=== PATIENT | male | born 1970 | race Hispanic/Latino ===

== ENCOUNTER 2024-10-14 15:44 | Emergency (ER) | payer OTHER ==
--- OUTSIDE RECORDS SUMMARY | 2024-10-14 15:48 | XMS REPORT | Continuity of Care Document ---
Author Name Unknown Address [address] [place] [address] [facility] Address [address] [place] [address] Care Team Providers Care Hotel Reservation Agent Name Role Phone Rehana COOK, Zaira Davis Primary Care Physician KEYA KIM Attending Clinician ZAIRA Garvin Attending Clinician Chelo Viera MA Attending Clinician Zaira Lara MD Attending Clinician + [phone] ALAN LOPEZ Attending Clinician ALAN Curtis Attending Clinician Amanda Cruz, Ang - Db Attending Clinician Zaira Muller MD Attending Clinician + [phone] Alan Lopez MD Attending Clinician [phone] Doctor Unassigned, [place] [facility] Attending Clinician Micah Marti MD Attending Clinician [phone] Jae Choudhury Attending Clinician [phone] JAE IVERSON Attending Clinician Unavailable Provider, [facility] Attending Clinician Un available Candie Calvo Attending Clinician [phone] CANDIE SOTELO Attending Clinician Unavailable RIANNA URBINA Attending Clinician Unavaila ble Lab, Adc Fam Pob I Attending Clinician Unavailab Keya Serrano MD Attending Clinician + [phone] Only, Adc Test Attending Clinician Unavailable Scott CINTRON, Adelaide F Attending Clinician MELVI LEMUS Attending Clinician Unavailable COLIN GAMINO Attending Clinician Un available Mika COOK, Mary Attending Clinician [phone] Joaquín Caba MD Attending Clinician [phone] KEYA KIM Admitting Clinician Keya Nash MD Admitting Clinician + [phone] Payers Payer Name Policy Type Policy Number Effective Date Expirati on Date Source [employer] [place] - OUT OF STATE [id number] 2015 00:00:00 [facility] ADV [id number] 2021 00:00:00 Problems Condition Name Condition Details Condition Category Status Onset Date Resolution Date Last Treatment Date Treating Clinician Comments Source Mood disorder Mood disorder Disease Active 12-26 00:00: 00 [facility] Benign prostatic hyperplasi a with urinary frequency Benign prostatic hyperplasi a with urinary frequency Disease Active 10-10 00:00: 00 Overview: Formattin g of this note might be different from the original. Added automatic ally from request for surgery [id number] [facility] Uncontroll ed type 2 diabetes mellitus with microalbum inuria, without long-term current use of insulin Uncontroll ed type 2 diabetes mellitus with microalbum inuria, without long-term current use of insulin Disease Active 08-10 00:00: 00 [facility] Elevated liver enzymes Elevated liver enzymes Disease Active 08-10 00:00: 00 [facility] Mass Mass Disease Active 08-10 00:00: 00 [facility] Hyperlipid emia, unspecifie d hyperlipid emia type Hyperlipid emia, unspecifie d hyperlipid emia type Disease Active 08-10 00:00: 00 [facility] Leukocytos is, unspecifie d type Leukocytos is, unspecifie d type Disease Active 08-10 00:00: 00 [facility] Bilateral edema of lower extremity Bilateral edema of lower extremity Disease Active 16 00:00: 00 [facility] Essential hypertensi on Essential hypertensi on Disease Active 2014-07 2 00:00: 00 [facility] Type 2 diabetes mellitus without complicati on Type 2 diabetes mellitus without complicati on Disease Resolve d 11-02 00:00: 00 2017-08-10 00:00:00 2017-08-10 08:20:48 [facility] Allergies, Adverse Reactions, Alerts Allergy Name Allergy Type Status Severity Reaction(s) Onset Date Inactive Date Treating Clinician Comments Source NO KNOWN ALLERGIE S Drug Class Active [facility] Social History Social Habit Start Date Stop Date Quantity Comments Source Gender identity [facility] Sexual orientation [facility] History SDOH Alcohol Frequency [facility] History SDOH Alcohol Std Drinks [facility] History SDOH Alcohol Binge [facility] Alcoholic beverage intake 2024-08-11 00:00:00 2024-08-11 00:00:00 0 /d [facility] History of Social function 2024-02-11 00:00:00 2024-02-11 00:00:00 [facility] Cigarettes smoked current (pack per day) - Reported 2024-02-11 00:00:00 2024-02-11 00:00:00 [facility] Cigarette pack-years 2024-02-11 00:00:00 2024-02-11 00:00:00 [facility] Tobacco use and exposure 2024-02-11 00:00:00 2024-02-11 00:00:00 Smokeless tobacco non-user [facility] Exposure to SARS-CoV-2 (event) 2022-11-20 00:00:00 2022-11-30 08:08:00 Not sure [facility] Alcohol intake 2022-11-30 00:00:00 2022-11-30 00:00:00 0 /d [facility] History of tobacco use 1989-06-18 00:00:00 2019-06-18 00:00:00 Cigarette Smoker [facility] Alcohol Comment 2015-06-22 00:00:00 2015-06-22 00:00:00 rarely [facility] Sex assigned at 1970 00:00:00 1970 00:00:00 [facility] Smoking Status Start Date Stop Date Source Tobacco smoking consumption unknown [facility] Ex-smoker 2024-02-11 00:00:00 2024-02-11 00:00:00 [facility] Medications Ordered Medication Name Filled Medication Name Start Date Stop Date Current Medication? Ordering Clinician Indication Dosage Frequency Signature (SIG) Comments Components Source semaglutide (OZEMPIC) 0.25 mg or 0.5 mg (2 mg/3 mL) PnIj 08-11 00:00: 00 Yes [id number] .25mg inject 0.25 mg under the skin 2 (two) times per week. [facility] metformin ER 500 mg 24 hr tablet 2023-07 00:00: 00 Yes [id number] 1000mg Take 2 tablets by mouth every morning and evening. [facility] tamsulosin 0.4 mg 24 hr capsule 03-31 00:00: 00 Yes [id number] 01 .4mg Take 1 capsule by mouth at bedtime. [facility] semaglutide (OZEMPIC) 0.25 mg or 0.5 mg(2 mg/1.5 mL) PnIj 03-31 00:00: 00 08-11 00:00 :00 No [id number] .25mg inject 0.25 mg under the skin weekly. [facility] metformin ER 500 mg 24 hr tablet 03-31 00:00: 00 05-06 00:00 :00 No [id number] 1000mg Take 2 tablets by mouth every morning and evening. [facility] carvediloL 25 mg tablet 02-10 00:00: 00 Yes [id number] 25mg Take 1 tablet by mouth in the morning and 1 tablet in the evening. Take with meals. [facility] SERTraline 50 mg tablet 02-10 00:00: 00 Yes [id number] 50mg Take 1 tablet by mouth every morning. [facility] lisinopriL 40 mg tablet 02-10 00:00: 00 Yes [id number] 40mg Take 1 tablet by mouth in the morning. Please contact office for appointmen t for further refills. [facility] clindamycin 150 mg capsule 02-10 00:00: 00 03-31 00:00 :00 No [id number] 150mg Take 1 capsule by mouth in the morning and 1 capsule at noon and 1 capsule in the evening. [facility] SERTraline 50 mg tablet 12-19 00:00: 00 02-10 00:00 :00 No [id number] 50mg TAKE 1 TABLET BY MOUTH EVERY DAY IN THE MORNING [facility] amiodarone 200 mg tablet 11-30 08:17: 12 02-10 00:00 :00 No 200mg Take 1 tablet by mouth in the morning. [facility] ibuprofen 200 mg tablet 11-30 08:15: 10 11-30 00:00 :00 No 600mg Take 600 mg by mouth 2 (two) times daily with meals. [facility] isosorbide mononitrate 30 mg 24 hr tablet 11-30 08:15: 07 11-30 00:00 :00 No 30mg Take 30 mg by mouth daily. [facility] naproxen sodium (ALEVE) 220 mg tablet 11-30 08:15: 04 11-30 00:00 :00 No 440mg Take 440 mg by mouth 2 (two) times daily with meals. [facility] omeprazole 20 mg capsule 11-30 08:15: 01 11-30 00:00 :00 No 20mg Take 20 mg by mouth daily. [facility] metformin ER 500 mg 24 hr tablet 11-30 00:00: 00 03-30 00:00 :00 No [id number] 1000mg Take 2 tablets by mouth every morning and evening. [facility] SITagliptin phosphate (JANUVIA) 100 mg tablet 11-30 00:00: 00 02-10 00:00 :00 No [id number] 100mg Take 1 tablet by mouth in the morning. [facility] SERTraline 50 mg tablet 11-30 00:00: 00 12-19 00:00 :00 No [id number] 50mg Take 1 tablet by mouth in the morning. [facility] metformin ER 500 mg 24 hr tablet 4-11 00:00: 00 11-30 00:00 :00 No [id number] 1000mg TAKE 2 TABLETS BY MOUTH EVERY MORNING AND EVENING. [facility] METFORMIN ER 500 mg 24 hr tablet 10-03 00:00: 00 Yes [id number] 1000mg TAKE 2 TABLETS BY MOUTH EVERY MORNING AND EVENING. [facility] metformin ER 500 mg 24 hr tablet 09-08 00:00: 00 10-03 00:00 :00 No [id number] 1000mg Take 2 tablets by mouth every morning and evening. [facility] metformin ER 500 mg 24 hr tablet 2- 00:00: 00 09-08 00:00 :00 No [id number] TAKE 2 TABLETS BY MOUTH IN THE MORNING AND 2 IN THE EVENING [facility] SITagliptin phosphate (JANUVIA) 100 mg tablet 1-13 00:00: 00 11-30 00:00 :00 No [id number] 100mg Take 1 tablet by mouth in the morning. [facility] metformin ER 500 mg 24 hr tablet 0 1-12 00:00: 00 Yes [id number] 1000mg Take 2 tablets by mouth in the morning and 2 tablets in the evening. [facility] METFORMIN ER 500 mg 24 hr tablet 2021-07 00:00: 00 Yes [id number] TAKE 2 TABLETS BY MOUTH TWICE DAILY [facility] METFORMIN ER 500 mg 24 hr tablet 2021-07- 00:00: 00 Yes [id number] TAKE 2 TABLETS BY MOUTH TWICE A DAY [facility] METFORMIN ER 500 mg 24 hr tablet 04-04 00:00: 00 Yes [id number] TAKE 2 TABLETS BY MOUTH TWICE A DAY [facility] atorvastati n 40 mg tablet 12-26 11:35: 36 12-26 00:00 :00 No 40mg Take 40 mg by mouth at bedtime. [facility] metformin ER 500 mg 24 hr tablet 12-26 00:00: 00 04-04 00:00 :00 No [id number] 1000mg Take 2 tablets by mouth 2 (two) times daily. [facility] SITagliptin (JANUVIA) 100 mg tablet 12-26 00:00: 00 03-27 04:59 :00 No [id number] 100mg Take 1 tablet by mouth daily for 90 days. [facility] atorvastati n 40 mg tablet 12-26 00:00: 00 03-27 04:59 :00 No [id number] 40mg Take 1 tablet by mouth at bedtime for 90 days. [facility] SERTraline 50 mg tablet 12-26 00:00: 00 03-27 04:59 :00 No [id number] 50mg Take 1 tablet by mouth daily for 90 days. [facility] METFORMIN ER 500 mg 24 hr tablet 12-12 00:00: 00 12-26 00:00 :00 No [id number] TAKE 2 TABLETS BY MOUTH TWICE A DAY [facility] JANUVIA 100 mg tablet 08-08 00:00: 00 12-26 00:00 :00 No [id number] TAKE 1 TABLET BY MOUTH EVERY DAY [facility] SERTRALINE 50 mg tablet 2020-07 00:00: 00 12-26 00:00 :00 No [id number] TAKE 1 TABLET BY MOUTH EVERY DAY [facility] BABY ASPIRIN ORAL 10-25 14:40: 00 Yes Take by mouth. [facility] hydroCHLORO thiazide 25 mg tablet 2019-07 16:04: 28 Yes 25mg Take 25 mg by mouth daily. [facility] apixaban 5 mg tablet 2019-07 16:03: 40 Yes 5mg Take 5 mg by mouth 2 (two) times daily. [facility] amiodarone 200 mg tablet 2019-07 16:03: 40 Yes 200mg Take 200 mg by mouth daily. [facility] isosorbide mononitrate 30 mg 24 hr tablet 2019-07 16:03: 40 Yes 30mg Take 30 mg by mouth daily. [facility] omeprazole 20 mg capsule 2019-07 16:03: 40 Yes 20mg Take 20 mg by mouth daily. [facility] ibuprofen 200 mg tablet 04-07 11:01: 56 Yes 600mg Take 600 mg by mouth 2 (two) times daily with meals. [facility] naproxen sodium (ALEVE) 220 mg tablet 04-07 11:01: 56 Yes 440mg Take 440 mg by mouth 2 (two) times daily with meals. [facility] cyclobenzap rine 5 mg tablet 02-24 00:00: 00 11-30 00:00 :00 No TAKE 1 TABLET BY MOUTH 3 TIMES A DAY NEEDED FOR MUSCLE SPASMS [facility] cloNIDine 0.1 mg tablet 02-23 00:00: 00 02-10 00:00 :00 No TAKE 1 TABLET BY MOUTH EVERY 8 HOURS NEEDED FOR SBP 170 ORALLY 30 DAY(S) [facility] amLODIPine 10 mg tablet 02-12 00:00: 00 Yes 10mg Take 1 tablet by mouth in the morning. [facility] lisinopril 40 mg tablet 01-11 00:00: 00 02-10 00:00 :00 No [id number] 40mg Take 1 tablet by mouth daily. Please contact office for appointmen t for further refills. [facility] blood sugar diagnostic (FREESTYLE LITE STRIPS) strip 07-29 00:00: 00 Yes [id number] TEST 1 TO 2 TIMES DAILY [facility] blood sugar diagnostic (FREESTYLE LITE STRIPS) strip 07-29 00:00: 00 Yes [id number] TEST 1 TO 2 TIMES DAILY [facility] oxybutynin 10 mg 24 hr tablet 2018-07 00:00: 00 11-30 00:00 :00 No [id number] 10mg Take 1 tablet by mouth daily. [facility] carvedilol 25 mg tablet 09-10 00:00: 00 02-10 00:00 :00 No [id number] 25mg Take 1 tablet by mouth 2 (two) times daily with meals. [facility] metformin ER (GLUCOPHAGE -XR) 500 mg 24 hr tablet 2014-07 00:00: 00 05-22 00:00 :00 No [facility] TRUERESULT BLOOD GLUCOSE SYSTM Kit 03-31 00:00: 00 Yes [facility] TRUETEST TEST STRIPS strip 03-31 00:00: 00 Yes [facility] TRUEPLUS LANCETS 30 gauge Misc 03-31 00:00: 00 Yes [facility] TRUERESULT BLOOD GLUCOSE SYSTM Kit 03-31 00:00: 00 Yes [facility] TRUETEST TEST STRIPS strip 03-31 00:00: 00 Yes [facility] Immunizations Ordered Immunization Name Filled Immunization Name Date Status Comments Source SARS-COV-2 COVID-19 PFIZER VACCINE 2023-12-19 00:00:00 Completed [facility] SARS-COV-2 COVID-19 PFIZER VACCINE 2020-09-25 00:00:00 Completed [facility] SARS-COV-2 COVID-19 PFIZER VACCINE 2020-09-25 00:00:00 Completed [facility] SARS-COV-2 COVID-19 PFIZER VACCINE 2020-09-04 00:00:00 Completed [facility] SARS-COV-2 COVID-19 PFIZER VACCINE 2020-09-04 00:00:00 Completed [facility] Vital Signs Vital Name Observation Time Observation Value Comments Yanick parrish Systolic blood pressure 2024-08-11 15:37:00 131 mm[Hg] [facility] Diastolic blood pressure 2024-08-11 15:37:00 88 mm[Hg] [facility] Heart rate 2024-08-11 15:37:00 61 /min [facility] Body weight 2024-08-11 15:37:00 146.058 kg [facility] BMI 2024-08-11 15:37:00 43.67 kg/m2 [facility] Systolic blood pressure 2024-03-31 20:35:00 135 mm[Hg] [facility] Diastolic blood pressure 2024-03-31 20:35:00 84 mm[Hg] [facility] Heart rate 2024-03-31 20:30:00 65 /min [facility] Body weight 2024-03-31 20:30:00 152.862 kg [facility] BMI 2024-03-31 20:30:00 45.71 kg/m2 [facility] Systolic blood pressure 2024-02-11 13:08:00 148 mm[Hg] [facility] Diastolic blood pressure 2024-02-11 13:08:00 95 mm[Hg] [facility] Heart rate 2024-02-11 13:07:00 69 /min [facility] Body temperature 2024-02-11 13:07:00 36.78 [place] [facility] Body height 2024-02-11 13:07:[address] [facility] Body weight 2024-02-11 13:07:00 154.677 kg [facility] BMI 2024-02-11 13:07:00 46.25 kg/m2 [facility] Systolic blood pressure 2022-11-30 13:15:00 133 mm[Hg] [facility] Diastolic blood pressure 2022-11-30 13:15:00 77 mm[Hg] [facility] Heart rate 2022-11-30 13:15:00 65 /min [facility] Body height 2022-11-30 13:15:00 182.9 cm [facility] Body weight 2022-11-30 13:15:00 154.677 kg [facility] BMI 2022-11-30 13:15:00 46.25 kg/m2 [facility] Diastolic blood pressure 2021-12-26 16:13:00 113 mm[Hg] [facility] Heart rate 2021-12-26 16:13:00 75 /min [facility] Body height 2021-12-26 16:13:00 182.9 cm [facility] Body weight 2021-12-26 16:13:00 158.033 kg [facility] BMI 2021-12-26 16:13:00 47.25 kg/m2 [facility] Oxygen saturation in Arterial blood by Pulse oximetry 2021-12-26 16:13:00 97 /min [facility] Systolic blood pressure 2021-12-26 16:13:00 180 mm[Hg] [facility] Procedures Procedure Date / Time Performed Performing Clinician Source POCT HEMOGLOBIN A1C TEST 2024-08-11 00:00:[address] [facility] EXTERNAL PROVIDER RECORDS 2023-01-15 05:01:00 Do ctor Unassigned, [place] [facility] HEMOGLOBIN A1C-Q 2022-11-30 14:23:00 Marcello [address] [facility] PSA, TOTAL-Q 2022-11-30 14:23:00 Cisco Tom [facility] CBC (INCLUDES DIFF/PLT)-Q 2022-11-30 14:23:[address] [facility] MICROALBUMIN, RANDOM URINE (W/CREATININE)-Q 2022-11-30 14:23:[address] [facility] LIPID PANEL-Q 2022-11-30 14:23:00 VeselCisco bryant [facility] COMPREHENSIVE METABOLIC$PANEL W/EGFR-Q 2022-11-30 14:23:[address] [facility] [place] [place] PATIENT FINANCIAL POLICY 2022-11-30 13:09:40 Doctor Unassigned, [place] [facility] INSURANCE CORRESPONDENCE 2022-03-02 05:01:00 Doc tor Unassigned, [place] [facility] NOTICE OF PRIVACY PRACTICES 2015-06-22 16:17:07 Doctor Unassigned, [place] [facility] CONSENT/REFUSAL FOR DIAGNOSIS AND TREATMENT 2015-06-22 16:16:23 Doctor Unassigned, [place] [facility] Encounters Start Date/Time End Date/Time Encounter Type Admission Type Attending Clinicians Care Facility Care Department Encounter ID Source 2021-05-06 18:18:10 Outpatient KEYA BOLANOS [facility] JULIANA [id number] [facility] 2021-05-06 14:16:17 Emergency [facility] [id number] [facility] 2019-05-19 13:05:00 Inpatient E [facility] [id number] 2024-11-03 15:30:00 2024-11-03 15:30:00 Outpatient ZAIRA LOMELI [facility] [id number] [facility] 2015-06-18 00:00:00 2024-08-23 04:22:16 Orders Only Tessa, Chelo Shay [facility] ..840.114 350.1.13.10 4.2.7.2.686 [id number] [facility] 2024-08-11 09:45:00 2024-08-11 09:55:23 Outpatient ZAIRA LOMELI [facility] [id number] [facility] 2024-08-11 09:45:00 2024-08-11 09:55:23 Office Visit Zaira Tom [facility] 1..840.114 350.1.13.10 4.2.7.2.686 [id number] [facility] 2024-05-06 00:00:00 2024-05-06 11:35:11 [facility] [facility] 1.2.840.114 350.1.13.10 4.2.7.2.686 [id number] [facility] 2024-04-29 00:00:00 2024-04-29 11:26:07 [facility] [place] [facility] 1.2.840.114 350.1.13.10 4.2.7.2.686 [id number] [facility] 2024-04-24 00:00:00 2024-04-25 08:02:34 Refill Zaira Tom [facility] 1.2.840.114 350.1.13.10 4.2.7.2.686 [id number] [facility] 2024-04-22 00:00:00 2024-04-23 09:39:41 RefZaira Hilario [facility] [place] [facility] 1.2.840.114 350.1.13.10 4.2.7.2.686 [id number] [facility] 2024-04-16 00:00:00 2024-04-16 11:30:50 Telephone [facility] [place] [facility] 1.2.840.114 350.1.13.10 4.2.7.2.686 [id number] [facility] 2024-04-15 00:00:00 2024-04-15 10:28:05 Telephone [facility] [place] [facility] 1.2.840.114 350.1.13.10 4.2.7.2.686 [id number] [facility] 2024-04-11 00:00:00 2024-04-15 09:52:46 Telephone Zaira Tom [facility] 1.2.840.114 350.1.13.10 4.2.7.2.686 [id number] [facility] 2024-04-01 00:00:00 2024-04-01 13:39:40 Telephone Zaira Tom [facility] 1.2.840.114 350.1.13.10 4.2.7.2.686 [id number] [facility] 2024-03-31 15:45:00 2024-03-31 16:15:00 [facility] 1.2.840.114 350.1.13.10 4.2.7.2.686 [id number] [facility] 2024-03-31 15:45:00 2024-03-31 15:45:00 Outpatient ZAIRA LOMELI [facility] [id number] [facility] 2024-03-30 00:00:00 2024-03-31 13:49:28 [facility] 1.2.840.114 350.1.13.10 4.2.7.2.686 [id number] [facility] 2024-03-19 10:00:00 2024-03-19 10:00:00 Outpatient ALAN SÁNCHEZ STRAILLeon [facility] [id number] [facility] 2024-02-16 00:00:00 2024-02-18 14:39:22 Refill Veselka, Zaira [facility] 1..840.114 350.1.13.10 4.2.7.2.686 [id number] [facility] 2024-02-14 00:00:00 2024-02-14 16:13:54 Telephone Zaira Tom [facility] 1.840.114 350.1.13.10 4.2.7.2.686 [id number] [facility] 2024-02-11 09:00:00 2024-02-11 09:15:00 Superintendent Generating Plant Visit Lab, [facility]co ButcherannetteZaira Lab, [place] Farmer [facility] ANDREW?[facility] 1.840.114 350.1.13.10 4.2.7.2.686 [id number] [facility] 2024-02-11 09:00:00 2024-02-11 09:00:00 Outpatient R ZAIRA TOM [facility] [id number] [facility] 2024-02-11 08:30:00 2024-02-11 09:00:00 Office Visit Zaira Tom [facility] 1..840.114 350.1.13.10 4.2.7.2.686 [id number] [facility] 2024-01-12 00:00:00 2024-01-15 14:03:44 Zaira Bernardo Critical [facility] 1.840.114 350.1.13.10 4.2.7.2.686 [id number] [facility] 2024-01-08 00:00:00 2024-01-08 08:32:19 [facility]aira [facility] 1.2.840.114 350.1.13.10 4.2.7.2.686 [id number] 044 [id number] [facility] 2023-12-27 00:00:00 2024-01-02 11:19:01 Telephone Alan Lopez [facility] NAL BUILDING 1.2.840.114 350.1.13.10 4.2.7.2.686 [id number] [facility] 2023-12-19 00:00:00 2023-12-20 10:15:09 Refill Zaira Tom [facility] 1.2.840.114 350.1.13.10 4.2.7.2.686 [id number] [id number] [facility] 2023-01-15 00:00:00 2023-01-15 00:00:00 Orders Only Doctor Unassigned, [place] [facility] 1.2.840.114 350.1.13.10 4.2.7.2.686 [id number] [facility] 2022-12-07 09:15:00 2022-12-07 09:15:00 Outpatient ZAIRA LOMELI [facility] [id number] [facility] 2022-12-05 00:00:00 2022-12-05 00:00:00 Telephone Zaira Tom grisel [facility] BUILDING 1.2.840.114 350.1.13.10 4.2.7.2.686 [id number] 044 [id number] [facility] 2022-11-30 08:00:00 2022-11-30 08:38:21 Outpatient ZAIRA LOMELI [facility] [id number] [facility] 2022-11-30 08:00:00 2022-11-30 08:38:21 Office Visit Veselka, [facility]REW[facility] 1.2840.114 350.1.13.10 4.2.7.2.686 [id number] [id number] [facility] 2022-11-30 00:00:00 2022-11-30 00:00:00 Orders Only Doctor Unassigned, [place] [facility] 1.2840.114 350.1.13.10 4.2.7.2.686 [id number] [facility] 2022-11-30 00:00:00 2022-11-30 00:00:00 Telephone Zaira Tom [facility] 1.2840.114 350.1.13.10 4.2.7.2.686 [id number] 044 [id number] [facility] 2022-11-27 00:00:00 2022-11-27 00:00:00 Refill Rehana [facility] ANDREW?[facility]Y [facility] OFF[facility] BU[facility] 1.2840.114 350.1.13.10 4.2.7.2.686 [id number] 044 [id number] [facility] 2022-10-17 00:00:00 2022-10-17 00:00:00 Refill Zaira Tom [facility] 1.2840.114 350.1.13.10 4.2.7.2.686 [id number] 044 [id number] [facility] 2022-10-03 00:00:00 2022-10-03 00:00:00 Refill Rehana [facility] OFF[facility] BU[facility] 1.2840.114 350.1.13.10 4.2.7.2.686 [id number] 044 [id number] [facility] 2022-09-25 13:45:00 2022-09-25 13:45:00 Outpatient R ZAIRA TOM [facility] [id number] [facility] 2022-09-08 00:00:00 2022-09-08 00:00:00 [facility] 1.2.840.114 350.1.13.10 4.2.7.2.686 [id number] 044 [id number] [facility] 2022-09-04 00:00:00 2022-09-04 00:00:00 Telephone [facility]a [facility]Y [facility] MED[facility] OFF[facility] BUILD[facility] 1..840.114 350.1.13.10 4.2.7.2.686 [id number] 044 [id number] [facility] 2022-08-30 00:00:00 2022-08-30 00:00:00 [facility]ill [facility] OFF[facility] BUILD[facility] 1.840.114 350.1.13.10 4.2.7.2.686 [id number] 044 [id number] [facility] 2022-07-20 00:00:00 2022-07-20 00:00:00 Refill Camilo [facility] BU[facility] 1..840.114 350.1.13.10 4.2.7.2.686 [id number] [id number] [facility] 2022-07-20 00:00:00 2022-07-20 00:00:00 Telephone Jae [facility]verson [facility] BU[facility] 1..840.114 350.1.13.10 4.2.7.2.686 [id number] 044 [id number] [facility] 2022-07-02 00:00:00 2022-07-02 00:00:00 [facility] OFF[facility] BUILD[facility] 1.2.840.114 350.1.13.10 4.2.7.2.686 [id number] 044 [id number] [facility] 2022-05-11 00:00:00 2022-05-11 00:00:00 Refill AldoJae ye [facility] ANDREW?AMY [facility] OFF[facility] BUILD[facility] 1.0114 350.1.13.10 4.2.7.2.686 [id number] 044 [id number] [facility] 2022-04-03 00:00:00 2022-04-03 00:00:00 Refill Jae Iverson [facility] OFF[facility] BUILD[facility] 1.114 350.1.13.10 4.2.7.2.686 [id number] 044 [id number] [facility] 2022-03-02 00:00:00 2022-03-02 00:00:00 Orders Only Doctor Unassigned, [place] [facility] 1.114 350.1.13.10 4.2.7.2.686 [id number] [id number] [facility] 2022-01-08 00:00:00 2022-01-08 00:00:00 [facility] 1.0114 350.1.13.10 4.2.7.2.686 [id number] 044 [id number] [facility] 2021-12-26 11:00:00 2021-12-26 11:43:27 Outpatient R ALDOJayden JAE [facility] [id number] [facility] 2021-12-26 11:00:00 2021-12-26 11:43:27 Office Visit AldoJae ye [facility] ANDREW?[facility] 1.114 350.1.13.10 4.2.7.2.686 [id number] 044 [id number] [facility] 2021-12-10 00:00:00 2021-12-10 00:00:00 Refill Rehana Zaira [facility] NAL BUILDING 1.2.840.114 350.1.13.10 4.2.7.2.686 [id number] 044 [id number] [facility] 2021-08-07 00:00:00 2021-08-07 00:00:00 Refill Rehana Zaira [facility] OFFICE BUILDING ONE 1.2.840.114 350.1.13.10 4.2.7.2.686 [id number] 044 [id number] [facility] 2021-05-16 00:00:00 2021-05-16 00:00:00 Refill Moshezach [facility] OFFICE BUILDING ONE 1.2.840.114 350.1.13.10 4.2.7.2.686 [id number] 044 [id number] [facility] 2020-12-18 00:00:00 2020-12-18 00:00:00 Refill Moshezach [facility] Office Building One 1.2.840.114 350.1.13.10 4.2.7.2.686 [id number] 044 [id number] [facility] 2020-10-25 14:26:50 2020-10-25 14:56:50 Office Visit Zaira Tom [facility] Office Building One 1.2.840.114 350.1.13.10 4.2.7.2.686 [id number] 044 [id number] [facility] 2020-10-25 14:30:00 2020-10-25 14:30:00 Outpatient R ZAIRA TOM [facility] [id number] [facility] 2020-10-22 00:00:00 2020-10-22 00:00:[address] [facility] nal Office Building One 1.840.114 350.1.13.10 4.2.7.2.686 [id number] 044 [id number] [facility] 2020-09-25 14:45:00 2020-09-25 14:45:00 Outpatient [facility] [id number] [facility] 2020-09-04 14:35:00 2020-09-04 14:35:00 Outpatient [facility] [id number] [facility] 2020-07-17 00:00:00 2020-07-17 00:00:00 Rynedenis MoshelauritaZaira bryant [facility] Office Building One 1.840.114 350.1.13.10 4.2.7.2.686 [id number] 044 [id number] [facility] 2020-05-20 08:15:00 2020-05-20 08:15:00 Outpatient ZAIRA LOMELI [facility] [id number] [facility] 2020-05-20 07:09:26 2020-05-20 07:24:26 Telemedici ne Visit Zaira Tom [facility] Office Building One 1.840.114 350.1.13.10 4.2.7.2.686 [id number] 044 [id number] [facility] 2020-05-17 13:15:00 2020-05-17 13:15:00 Outpatient ZAIRA LOMELI [facility] [id number] [facility] 2020-05-12 00:00:00 2020-05-12 00:00:00 Rynedenis MoshelauritaZaira bryant [facility] Office Building One 1.840.114 350.1.13.10 4.2.7.2.686 [id number] [id number] [facility] 2020-04-29 16:54:31 2020-04-29 17:14:31 Urgent Care Provider, [facility], [facility] Office Building One .84114 350.1.13.10 4.2.7.2.686 [id number] [id number] [facility] 2020-04-29 17:00:00 2020-04-29 17:00:00 [id number] 2020-04-28 16:40:00 2020-04-28 16:40:00 Outpatient R RIANNA URBINA [facility] [id number] [facility] 2020-04-27 17:55:48 2020-04-27 18:15:48 Laboratory Only Lab, Adc Fam Pob Nikki Sotelo [facility] Office Building One 1.84.114 350.1.13.10 4.2.7.2.686 [id number] [facility] 2020-04-27 18:00:00 2020-04-27 18:00:00 Outpatient R [facility] [id number] [facility] 2020-04-19 15:45:13 2020-04-19 16:00:13 Office Visit Rehana Zaira Ryan [facility] Office Building One 1.84.114 350.1.13.10 4.2.7.2.686 [id number] [facility] 2020-04-19 15:45:00 2020-04-19 15:45:00 Outpatient R ZAIRA TOM [facility] [id number] [facility] 2020-04-07 07:40:00 2020-04-07 10:55:00 Hospital Encounter Keya Snyder [facility] 1..114 350.1.13.10 4.2.7.2.686 [id number] [facility] 2020-04-06 13:51:44 2020-04-06 14:06:44 Laboratory Only Only, Adc Test Keya Snyder [facility] 1.0.114 350.1.13.10 4.2.7.2.686 [id number] [facility] 2020-04-06 13:45:00 2020-04-06 13:45:00 Outpatient R KEYA SNYDER [facility] [id number] [facility] 2020-04-06 00:00:00 2020-04-06 00:00:00 Orders Only Doctor Unassigned, [place] [facility] 1.0.114 350.1.13.10 4.2.7.2.686 [id number] [facility] 2020-03-11 10:15:00 2020-03-11 10:15:00 Outpatient ZAIRA LOMELI [facility] [id number] [facility] 2020-03-11 08:09:41 2020-03-11 08:24:41 Telemedici ne Visit Zaira Tom [facility] Building 1.114 350.1.13.10 4.2.7.2.686 [id number] [id number] [facility] 2020-03-03 11:30:00 2020-03-03 11:30:00 Outpatient R ZAIRA TOM [facility] [id number] [facility] 2020-03-01 17:14:00 2020-03-01 21:36:00 Emergency Adelaide Chavez [facility] 1..114 350.1.13.10 4.2.7.2.686 [id number] [facility] 2020-03-01 00:00:00 2020-03-01 00:00:00 [facility] 1..114 350.1.13.10 4.2.7.2.686 [id number] [facility] 2020-03-01 00:00:00 2020-03-01 00:00:00 Orders Only Doctor Unassigned, [place] [facility] 1.284.114 350.1.13.10 4.2.7.2.686 [id number] [facility] 2020-02-27 23:51:00 2020-02-28 03:49:00 Emergency E ALLANMELVI [facility] [id number] [facility] 2020-02-25 10:15:00 2020-02-25 15:45:00 [facility] 2020-02-11 00:00:00 2020-02-11 00:00:00 Refill Rehana [facility] Office Building One 1.840.114 350.1.13.10 4.2.7.2.686 [id number] 044 [id number] [facility] 2020-02-08 00:00:00 2020-02-08 00:00:00 Refill Rehana [facility] Office Building One 1.840.114 350.1.13.10 4.2.7.2.686 [id number] 044 [id number] [facility] 2020-01-05 00:00:00 2020-01-05 00:00:00 [facility] 1.840.114 350.1.13.10 4.2.7.2.686 [id number] 059 [id number] [facility] 2019-11-18 00:00:00 2019-11-18 00:00:00 [facility] 1..840.114 350.1.13.10 4.2.7.2.686 [id number] 059 [id number] [facility] 2019-11-17 00:00:00 2019-11-17 00:00:00 Telephone Mary Brennan [facility] Building 1.2.840.114 350.1.13.10 4.2.7.2.686 [id number] 059 [id number] [facility] 2019-10-14 00:00:00 2019-10-14 00:00:00 Refill Joaquín Caba [facility] Building 1.2.840.114 350.1.13.10 4.2.7.2.686 [id number] [facility] 2019-10-06 00:00:00 2019-10-06 00:00:00 [facility] 1.2.840.114 350.1.13.10 4.2.7.2.686 [id number] 059 [id number] [facility] 2019-09-30 10:15:00 2019-09-30 10:15:00 Outpatient R ZAIRA TOM [facility] [id number] [facility] 2019-09-30 07:16:33 2019-09-30 07:31:33 Telemedici ne Visit Rehana [facility] Office Building One 1..840.114 350.1.13.10 4.2.7.2.686 [id number] 044 [id number] [facility] 2019-07-27 00:00:00 2019-07-27 00:00:00 Refill Rehana Zaira [facility] Office Building One 1..840.114 350.1.13.10 4.2.7.2.686 [id number] [id number] [facility] 2019-06-15 08:38:00 2019-06-14 20:22:00 Inpatient E [facility] 2019-03-24 00:00:00 2019-03-24 00:00:00 Telephone Veselka, [facility] Office Building One 1.2840.114 350.1.13.10 4.2.7.2.686 [id number] 044 [id number] [facility] 2019-02-28 15:22:36 2019-02-28 16:00:28 Office Visit Zaira Tom [facility] Office Building One 1.2840.114 350.1.13.10 4.2.7.2.686 [id number] 044 [id number] [facility] 2019-02-14 15:22:40 2019-02-14 16:14:04 Office Visit Zaira Tom [facility] Office Building One 1.2840.114 350.1.13.10 4.2.7.2.686 [id number] 044 [id number] [facility] 2019-02-14 00:00:00 2019-02-14 00:00:00 Orders Only Doctor Unassigned, [place] [facility] 1.2840.114 350.1.13.10 4.2.7.2.686 [id number] [facility] Results Test Description Test Time Test Comments Results Result Co mments Source [facility] RRRPC-[id number] 15:00:00* Test Item Value Reference Range Interpretation Comments CHOLESTEROL, TOTAL-Q (test code = 2093-3) 144 mg/dL <=200 HDL CHOLESTEROL-Q (test code = 2085-9) 36 mg/dL See_Comment L [Automated message] The system which generated this result transmitted reference range: > OR = 40. The reference range was not used to interpret this result as normal/abnormal. TRIGLYCERIDES-Q (test code = 2571-8) 371 mg/dL <=150 H If a non-fa sting specimen was collected, considerrepeat triglyceride testing on a fasting specimenif clinically indicated. Wanda et al. J. of Clin. Lipidol. 2015;9:129-169. WCV-SUTPHARXHHU-T (test code = 24178-6) 63 mg/dL (calc) Reference range: <100 Desirable range <100 mg/dL for primary prevention; ?<70 mg/dL for patients with CHD or diabetic patients with > or = 2 CHD risk factors. LDL-C is now calculated using the Dash calculation, which is a validated novel method providing better accuracy than the Friedewald equation in the estimation of LDL-C. Vitaly GASTON et al. RAMOS. 2013;310(19): 0854-5328 (http://education.KIT digital /faq/NCA916) CHOL/HDLC RATIO-Q (test code = 9830-1) 4.0 See_Comment [Automated message] The system which generated this result transmitted reference range: <5.0 (calc). The reference range was not used to interpret this result as normal/abnormal. NON-HDL CHOLESTEROL-Q (test code = 27580-7) 108 See_Comment For patients wit h diabetes plus 1 major ASCVD risk factor, treating to a non-HDL-C goal of <100 mg/dL (LDL-C of <70 mg/dL) is considered a therapeutic option. [Automated message] The system which generated this result transmitted reference range: <130 mg/dL (calc). The reference range was not used to interpret this result as normal/abnormal. GAUDENCIO (test code = GAUDENCIO) PERFORMED BY [employer] [facility]; [address] [place] [id number]; MARGARET DAO MD Lab Interpretation (test code = 50606-5) Abnormal [facility]CROALBUMIN, RANDOM URINE (W/CREATININE)-Q 2022-12-02 15:00:00* Test Item Value Reference Range Interpretation Comments CREATININE, RANDOM URINE-Q (test code = 2161-8) 130 mg/dL 20-320 MICROALBUMIN-Q (test code = 34603-4) 3.9 mg/dL Reference RangeN ot established MICROALBUMIN/CREATI NINE$RATIO, RANDOM URINE-Q (test code = 9318-7) 30 See_Comment H The ADA defines abnormalities in albuminexcretion as follows: Albuminuria Category ?Result (mcg/mg creatinine) Normal to Mildly increased ? <30Moderately increased ? 30-299 Severely increased ? > OR = 300 The ADA recommends that at least two of threespecimens collected within a 3-6 month period beabnormal before considering a patient to bewithin a diagnostic category. [Automated message] The system which generated this result transmitted reference range: <30 mcg/mg creat. The reference range was not used to interpret this result as normal/abnormal. AGUDENCIO (test code = GAUDENCIO) PERFORMED BY [employer] [facility]; [address] [place] [address]; MARGARET DAO MD Lab Interpretation (test code = 39872-5) Abnormal [facility]st[facility]PRE[facility] METABOLIC$PANEL W/EGFR-Q 2022-12-02 15:00:00* Test Item Value Reference Range Interpretation Comme nts GLUCOSE-Q (test code = 2345-7) 142 mg/dL 65-99 H ? Fastin g reference interval For someone without known diabetes, a glucosevalue >125 mg/dL indicates that they may havediabetes and this should be confirmed with afollow-up test. UREA NITROGEN (BUN)-Q (test code = 3094-0) 21 mg/dL 7-25 CREATININE-Q (test code = 2160-0) 1.32 mg/dL 0.70-1.30 H EGFR-Q (test code = 75045-3) 64 See_Comment The eGFR is base d on the CKD-EPI 2020 equation. To calculate the new eGFR from a previous Creatinine or Cystatin Cresult, go to https://www.kidney .org/professionals /kdoqi/gfr%5Fcalcu lator [Automated message] The system which generated this result transmitted reference range: > OR = 60 mL/min/1.73m2. The reference range was not used to interpret this result as normal/abnormal. BUN/CREATININE RATIO-Q (test code = 3097-3) 16 See_Comment [Automated message] The system which generated this result transmitted reference range: 6 - 22 (calc). The reference range was not used to interpret this result as normal/abnormal. SODIUM-Q (test code = 2951-2) 139 mmol/L 135-146 POTASSIUM-Q (test code = 2823-3) 4.0 mmol/L 3.5-5.3 CHLORIDE-Q (test code = 2075-0) 106 mmol/L 98-110 CARBON DIOXIDE-Q (test code = 2027-9) 27 mmol/L 20-32 CALCIUM-Q (test code = 61101-2) 9.0 mg/dL 8.6-10.3 PROTEIN, TOTAL-Q (test code = 2885-2) 6.8 g/dL 6.1-8.1 ALBUMIN-Q (test code = 1751-7) 3.9 g/dL 3.6-5.1 GLOBULIN-Q (test code = 12896-7) 2.9 See_Comment [Automated message] The system which generated this result transmitted reference range: 1.9 - 3.7 g/dL (calc). The reference range was not used to interpret this result as normal/abnormal. ALBUMIN/GLOBULIN RATIO-Q (test code = 1759-0) 1.3 See_Comment [Automated message] The system which generated this result transmitted reference range: 1.0 - 2.5 (calc). The reference range was not used to interpret this result as normal/abnormal. BILIRUBIN, TOTAL-Q (test code = 1974-2) 0.3 mg/dL 0.2-1.2 ALKALINE PHOSPHATASE-Q (test code = 6768-6) 54 U/L 35-144 AST-Q (test code = 1920-8) 19 U/L 10-35 ALT-Q (test code = 1742-6) 22 U/L 9-46 GAUDENCIO (test code = GAUDENCIO) PERFORMED BY [employer] [facility]; [address] [place] [phone]; MARGARET DAO MD Lab Interpretation (test code = 87643-7) Abnormal [facility] (INCLUDES DIFF/PLT)-[id number] 15:00:00* Test Item Value Reference Range Interpretation Comme nts WHITE BLOOD CELL COUNT-Q (test code = 6690-2) 7.9 See_Comment [Automated message] The system which generated this result transmitted reference range: 3.8 - 10.8 Thousand/uL. The reference range was not used to interpret this result as normal/abnormal. RED BLOOD CELL COUNT-Q (test code = 789-8) 4.60 See_Comment [Automated message] The system which generated this result transmitted reference range: 4.20 - 5.80 Million/uL. The reference range was not used to interpret this result as normal/abnormal. HEMOGLOBIN-Q (test code = 718-7) 13.6 g/dL 13.2-17.1 HEMATOCRIT-Q (test code = 4544-3) 40.9 % 38.5-50.0 MCV-Q (test code = 787-2) 88.9 fL 80.0-100.0 MCH-Q (test code = 785-6) 29.6 pg 27.0-33.0 MCHC-Q (test code = 786-4) 33.3 g/dL 32.0-36.0 RDW-Q (test code = 788-0) 15.9 % 11.0-15.0 H PLATELET COUNT-Q (test code = 777-3) 265 See_Comment [Automated message] The system which generated this result transmitted reference range: 140 - 400 Thousand/uL. The reference range was not used to interpret this result as normal/abnormal. MPV-Q (test code = 776-5) 11.0 fL 7.5-12.5 ABSOLUTE NEUTROPHILS-Q (test code = 751-8) 5585 See_Comment [Automated message] The system which generated this result transmitted reference range: 1500 - 7800 cells/uL. The reference range was not used to interpret this result as normal/abnormal. ABSOLUTE BAND NEUTROPHILS-Q (test code = 23404-2) SEE NOTE ABSOLUTE METAMYELOCYTES-Q (test code = 11003-9) SEE NOTE ABSOLUTE MYELOCYTES-Q (test code = 65924-1) SEE NOTE ABSOLUTE PROMYELOCYTES-Q (test code = 01758-2) SEE NOTE ABSOLUTE LYMPHOCYTES-Q (test code = 731-0) 1541 See_Comment [Automated message] The system which generated this result transmitted reference range: 850 - 3900 cells/uL. The reference range was not used to interpret this result as normal/abnormal. ABSOLUTE MONOCYTES-Q (test code = 742-7) 529 See_Comment [Automated message] The system which generated this result transmitted reference range: 200 - 950 cells/uL. The reference range was not used to interpret this result as normal/abnormal. ABSOLUTE EOSINOPHILS-Q (test code = 711-2) 198 See_Comment [Automated message] The system which generated this result transmitted reference range: 15 - 500 cells/uL. The reference range was not used to interpret this result as normal/abnormal. ABSOLUTE BASOPHILS-Q (test code = 704-7) 47 See_Comment [Automated message] The system which generated this result transmitted reference range: 0 - 200 cells/uL. The reference range was not used to interpret this result as normal/abnormal. ABSOLUTE BLASTS-Q (test code = 15036-8) SEE NOTE ABSOLUTE NUCLEATED RBC-Q (test code = 42969-2) SEE NOTE NEUTROPHILS-Q (test code = 770-8) 70.7 % BAND NEUTROPHILS-Q (test code = 764-1) SEE NOTE METAMYELOCYTES-Q (test code = 740-1) SEE NOTE MYELOCYTES-Q (test code = 749-2) SEE NOTE PROMYELOCYTES-Q (test code = 783-1) SEE NOTE LYMPHOCYTES-Q (test code = 736-9) 19.5 % REACTIVE LYMPHOCYTES-Q (test code = 68775-1) SEE NOTE MONOCYTES-Q (test code = 5905-5) 6.7 % EOSINOPHILS-Q (test code = 713-8) 2.5 % BASOPHILS-Q (test code = 706-2) 0.6 % BLASTS-Q (test code = 709-6) SEE NOTE NUCLEATED RBC-Q (test code = 50315-6) SEE NOTE COMMENT(S)-Q (test code = 8251-1) SEE NOTE GAUDENCIO (test code = GAUDENCIO) PERFORMED BY [employer] [facility]; [address] [place] [id number]; MARGARET DAO MD Lab Interpretation (test code = 45901-9) [facility] [id number] 15:00:00* Test Item Value Reference Range Interpretation Comments PSA, TOTAL-Q (test code = 2857-1) 7.47 ng/mL See_Comment H The total PSA va lue from this assay system is standardized against the WHO standard. The test result will be approximately 20% lower when compared to the equimolar-standardize d total PSA (Tameka Elen). Comparison of serial PSA results should be interpreted with this fact in mind. This test was performed using the Siemens chemiluminescent method. Values obtained from different assay methods cannot be usedinterchangeably. PSA levels, regardless ofvalue, should not be interpreted as absoluteevidence of the presence or absence of disease. [Automated message] The system which generated this result transmitted reference range: < OR = 4.0. The reference range was not used to interpret this result as normal/abnormal. GAUDENCIO (test code = GAUDENCIO) PERFORMED BY [employer] [facility]; [address] [place] [id number]; MARGARET DAO MD Lab Interpretation (test code = 71591-4) [facility]normal [facility] [id number] 15:00:00* Test Item Value Reference Range Interpretation Comments HEMOGLOBIN A1c-Q (test code = 4548-4) 6.2 See_Comment H For someone without known diabetes, a hemoglobin A1c value between 5.7% and 6.4% is consistent withprediabetes and should be confirmed with a follow-up test. For someone with known diabetes, a value <7%indicates that their diabetes is well controlled. [id number] should be individualized based on duration ofdiabetes, age, comorbid conditions, and otherconsiderations. This assay result is consistent with an increased riskof diabetes. Currently, no consensus exists regarding use ofhemoglobin A1c for diagnosis of diabetes for children. REPORT COMMENT:FASTING:YES [Automated message] The system which generated this result transmitted reference range: <5.7 % of total Hgb. The reference range was not used to interpret this result as normal/abnormal. GAUDENCIO (test code = GAUDENCIO) PERFORMED BY [employer] [facility]; [address] [place] [id number]; MARGARET DAO MD Lab Interpretation (test code = 40980-7) Abnormal [facility] Notes Date/Time Note Provider Source 2024-08-11 09:45:00 Addended by: IDANIA HERNÁNDEZ on: 08/11/2024 10:01 AM Modules accepted: Orders [facility] 2024-05-06 11:34:40 Refill sent to pharmacy and notified patient T [facility] 2024-05-06 11:20:48 He should be taking the metformin and the Ozempic OK to refill the Metformin if needed V [facility] 2024-05-06 11:08:15 Patient is asking if he should still be taking the Metformin with the Ozempic and if so does he need to be on the same dose of metformin ? If he needs to continue he will need a refill of metformin Please let me no so I can notify patient [facility] 2024-05-06 09:57:37 Roland Pickeringjone Aguirre Sr. is a 54 year old male calling to see if dr made a change to his metformin. Pt says the medication was changed with out being talked to about it.They would like to discuss this [facility] Brianna Rosa [facility] 2024-04-29 11:24:51 Approved. This drug has been approved. Approved quantity: 1.5 units per 30 day(s). The drug has been approved from 04/15/2024 to 04/15/2025. Please call the pharmacy to process your prescription claim. Generic or biosimilar substitution may be required when available and preferred on the formulary.. Authorization Expiration Date: April 15, 2025. [facility] 2024-04-29 11:16:44 Roland Hernandezoa Sr. is a 54 year old male Pt is requesting to speak with a nurse regarding his ozempic. Pt has been going back and forth to get this medication approved since 04.11.24. 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 Hetal Stern [facility] 2024-04-16 11:29:43 PA was already completed and pharmacy was notified yesterday [facility] 2024-04-16 11:21:09 Needing a PA medication request// placed in provider basket. Arabella Diana [facility] 2024-04-15 09:52:21 PA submitted to [employer] waiting on response [facility] 2024-04-11 15:23:09 Roland Aguirre Sr. is a 54 year old male Calling in prior auth for semaglutide (OZEMPIC) 0.25 mg or 0.5 mg(2 mg/1.5 mL) PnIj Pt states he has been without Rx for over a week Please address and advise Rodney Acevedo [facility] 2024-04-01 13:38:34 Images from the original note were not included. PA Lowe: [id number] Placed in Providers box. Margi Orantes [facility] 2024-02-11 09:00:00 Images from the original note were not included. Venipuncture collection performed by clean technique on the right anticubitus. Total of 1 attempts were made. Slight pressure and a bandage/dressing were applied to the site(s). The patient experienced no complications. The following specimens were processed according to instructions and sent to [facility] laboratories per lab order on 02/11/2024 : LT BLUE SST 1 RED LAV 2 PPT DK GREEN (LiHep) DK GREEN (SodH) PIERRE DK BLUE (K2) DK BLUE (S) ACD Blood Culture NIPT/NTD [facility] 2024-01-02 11:15:57 Contacted patient to schedule an appt with we are OON with his insurance and patient stated he did not want to be self pay. I did re explain to the patient he is needing to schedule an appt in order to get his CPAP prescription up to date. He stated he did not understand that process and will find a doctor elsewhere who is in network. Monica Styles [facility] 2024-01-02 10:45:19 Sent patient his sleep study on his My Chart. Called [facility], they are advising that patient will need an appointment and new prescription for new CPAP machine. Patient hasn't been seen since 2018. Manju Moncada RN [facility] 2023-12-27 11:30:55 Roland Aguirre Sr. is a 53 year old male calling to get sleep study script copy [facility] or e-mail address for a new machine. Please advise [phone] (home) Danielle Edwards [facility]
[2024-10-14] MEDS ORDERED: TDAP (DIPHTH,PERTUSS(ACELL),TET VAC) 0.5 ML VIAL IMVAC ONE (16:39)
[2024-10-14] MEDS ORDERED: HYDROCODONE/APAP 10/325 TAB ONE (16:39)
--- NOTE | 2024-10-14 17:43 | RAD REPORT ---
EXAM: CT CHEST, ABDOMEN AND PELVIS WITHOUT CONTRAST CLINICAL INDICATION: Chest and abdominal pain status post fall TECHNIQUE: CT chest, abdomen and pelvis was performed, without IV contrast, as per department protoco l. Axial, sagittal and coronal reconstructions were obtained. One or more of the following dose reduction techniques were used: Automated exposure control, adjustment of the mA and/or kV according to the patient size, and/or iterative reconstruction. Unless otherwise specified, incidental findings do not require dedicated imaging follow-up. The lack of IV and oral contrast limits evaluation of the mediastinum, radha, vessels, organs and ruth ann l. COMPARISON: None FINDINGS: A pulmonary contusion is not present. No mediastinal hematoma. No pleural effusion. No pericardial effusion. Liver, spleen, pancreas, adrenals kidneys and bladder do not demonstrate a traumatic injury. Prostate gland moderately to markedly enlarged. Normal appendix. Increased density within the right anterior subcutaneous fat abdomen may represent a contusion. 2 cm low-density mass left kidney nonspecific but probably a cyst. Follow-up nonemergent ultrasound i n 3 months tiny nonobstructing left renal calculi There is no evidence of diverticulitis IMPRESSION: Increased density within the right anterior subcutaneous fat abdomen may represent a contusion. Otherwise, no acute traumatic injury involving the chest/abdomen/pelvis seen.
--- NOTE | 2024-10-14 17:47 | RAD REPORT ---
EXAMINATION: CT HEAD WITHOUT CONTRAST CT CERVICAL SPINE WITHOUT CONTRAST CLINICAL INDICATION: Head and neck injury status post fall. Head and neck pain TECHNIQUE: Axial CT images from the skull base to the vertex without intravenous contrast. Axial CT i mages through the cervical spine were obtained without intravenous contrast. Sagittal and coronal reformatted images were created from the data set. Coronal and sagittal reformatted images were creat ed from the data set. One or more of the following dose reduction techniques were used: Automated exposure control, adjustment of the mA and/or kV according to patient size, and/or iterative reconstr uction. Unless otherwise specified, incidental findings do not require dedicated imaging follow-up. [id number]. Comparison: none FINDINGS: An intracranial bleed is not seen. Ventricles are normal in caliber. No significant hypodensity within the brain No extra-axial fluid collection. No fluid within the sinuses/mastoids No fracture or dislocation is seen involving the cervical spine. IMPRESSION: No acute intracranial abnormality noted A cervical fracture is not seen. If the patient continues to have symptoms to suggest acute LPN MEDICAL ASSISTANT/spinal pathology then MRI would be rec ommended
--- NOTE | 2024-10-14 17:50 | RAD REPORT ---
Exam:Knee Left 3 View HISTORY: Left knee pain FINDINGS: No fracture or dislocation seen Laceration anterior soft tissue lower left knee. [id number] joint effusion If the patient continues to have symptoms to suggest an occult fracture, ligamentous or meniscal inju ry then MRI would be recommended
--- NOTE | 2024-10-14 17:51 | RAD REPORT ---
Exam:Forearm Right Clinical history: Right forearm pain Findings: No fracture or dislocation seen involving the right forearm
--- NOTE | 2024-10-14 17:52 | RAD REPORT ---
Exam:Forearm Left Clinical history: Left forearm pain Findings: No fracture or dislocation seen. 1 cm lucency proximal radius probably chronic. Follow-up x-ray in 3 months recommended to assess stab ility.
--- NOTE | 2024-10-14 18:11 | RAD REPORT ---
Exam:Knee Right 3 View HISTORY: Right knee pain FINDINGS: No fracture or dislocation seen Bony/calcific density adjacent to the anterior superior aspect of the patella presumably chronic. Thi s should be correlated clinically to see if the patient has point tenderness in this region to suggest acuity.
[2024-10-14] MEDS ORDERED: LIDOCAINE 1% 20 ML MDV ONE (18:26)
[2024-10-14] MEDS ORDERED: DIAZEPAM 5 MG TABLET ONE (18:54)
--- NOTE | 2024-10-14 19:12 | EDPHYS ---
Physician Documentation [facility] Name: Hamilton Aguirre Sr Age: 54 yrs Sex: Male : 1970 Arrival Date: 10/14/2024 Time: 15:44 Bed 7 Private MD: ED Physician Martin Benavides HPI: 10/14 16:38 This 54 yrs old Male presents to ER via Ambulatory with complaints of Fell kb from ladder. 16:38 Pt is a 54 year old male who presents for pain all over after falling on ladder. Pt was kb about 10 ft up on a ladder and it fell forward causing him to hit the ground. States everything hurts. Laceration to left knee. . Historical: - Allergies: 16:29 No Known Allergies; ap3 - Home Meds: 16:30 Eliquis oral [Active]; ap3 - Immunization history:: Client reports receiving the 2nd dose of the Covid vaccine. - Infectious Disease History:: Denies. - Social history:: Smoking status: Patient denies any tobacco usage or history of. ROS: 16:37 Constitutional: As per HPI kb Exam: 16:36 Constitutional: This is a well developed, well nourished patient who is awake, alert, kb and in no acute distress. Head/Face: Normocephalic, atraumatic. Eyes: Pupils equal round and reactive to light, extra-ocular motions intact. Lids and lashes normal. Conjunctiva and sclera are non-icteric and not injected. Cornea within normal limits. Periorbital areas with no swelling, redness, or edema. ENT: Moist Mucous membranes Neck: Trachea midline and no cervical lymphadenopathy. Supple, full range of motion without nuchal rigidity, or vertebral point tenderness. No Meningismus. Chest/axilla: Normal chest wall appearance and motion. Cardiovascular: Regular rate Respiratory: Respirations even and unlabored. No increased work of breathing. Talking in full sentences Abdomen/GI: Soft, non-tender. No distention Back: No spinal tenderness. No costovertebral tenderness. Full range of motion. Neuro: Awake and alert, GCS 15, oriented to person, place, time, and situation. 16:36 Musculoskeletal/extremity: Extremities: grossly normal except: noted in the right knee and left knee: pain, noted in the right forearm and left forearm: pain, tenderness, ROM: intact in all extremities, Circulation is intact in all extremities. Sensation intact. Weight bearing: able to fully bear weight, 16:36 Skin: injury, laceration(s), of the left knee, that can be described as abrasions to left hand, left forearm, right knee, forehead. . Vital Signs: 16:32 Pulse 80; Resp 17; Temp 98.5; Pulse Ox 98% on R/A; Weight 145.15 kg; Pain 8/10; ap3 17:04 BP 149 / 115; Pulse 83; Resp 18; Pulse Ox 95% on R/A; Pain 8/10; ld1 19:24 BP 140 / 95; Pulse 81; Resp 18 S; Pulse Ox 98% on R/A; ha1 16:32 Pain Scale: Adult ap3 17:04 Pain Scale: Adult ld1 Laceration: 19:07 Wound Repair of 4cm ( 1.6in ) subcutaneous laceration to left knee. Linear shaped.. kb Distal neuro/vascular/tendon intact. Anesthesia: Wound infiltrated with 6 mls of 1% lidocaine. Wound prep: Extensive cleansing with hibiclenz by me, Wound irrigation with saline by me. Skin closed with 5 4-0 Prolene using 3 cruciate knots, 2 simple sutures. Patient tolerated well. MDM: 16:04 Medical Screening Exam initiated kb 16:38 Data reviewed: vital signs, nurses notes. kb 19:07 Differential diagnosis: contusion, fracture, ICH. Historians other than the Patient: mheul Spouse/Significant Other: . Counseling: I had a detailed discussion with the patient and/or guardian regarding the historical points, exam findings, and any diagnostic results supporting the discharge/admit diagnosis, radiology results, the need for outpatient follow up, a family practitioner, to return to the emergency department if symptoms worsen or persist or if there are any questions or concerns that arise at home. 10/14 16:35 Order name: Forearm Left XRAY; Complete Time: 17:54 ap3 10/14 16:35 Order name: Forearm Right XRAY; Complete Time: 17:52 ap3 10/14 16:35 Order name: Knee Left 3 View XRAY; Complete Time: 17:52 ap3 10/14 16:35 Order name: Knee Right 3 View XRAY; Complete Time: 18:12 ap3 10/14 16:35 Order name: CT Head C Spine; Complete Time: 17:49 ap3 10/14 16:35 Order name: CT Chest Abdomen Pelvis W/O Contrast; Complete Time: 17:49 ap3 10/14 18:21 Order name: Dressing - Wound; Complete Time: 18:50 kb 10/14 18:21 Order name: Gloves, Sterile; Complete Time: 18:50 kb 10/14 18:21 Order name: Prolene, Sutures; Complete Time: 18:50 kb 10/14 18:21 Order name: Setup Suture Tray; Complete Time: 18:50 kb Administered Medications: 17:03 Drug: [place] PO 10 mg-325 mg 1 tabs PO once Route: PO; ld1 18:50 Follow up: Response: No adverse reaction; Pain is decreased; RASS: Alert and Calm (0) ll1 17:04 Drug: Boostrix Tdap IM 0.5 ml IM once; as a single dose Route: IM; Site: right deltoid; ld1 18:50 Follow up: Response: No adverse reaction ll1 18:55 Drug: Diazepam PO 5 mg PO once Route: PO; ll1 19:27 Follow up: Response: No adverse reaction; Marked relief of symptoms ha1 18:56 Drug: Lidocaine Infiltration (1 %) 1 vials 20 ml Infiltration once; to bedside {Note: ll1 by ABDULAZIZ Koch during suture repair.} Volume: 20 ml; Route: Infiltration; 19:27 Follow up: Response: No adverse reaction; Marked relief of symptoms ha1 Disposition: 10/15 14:37 Co-signature as Attending Physician, Martin Benavides MD I agree with the assessment and alex plan of care. Disposition Summary: 10/14/24 19:11 Discharge Ordered Notes: Location: Home kb Condition: Stable kb Diagnosis - Fall on and from ladder, initial encounter kb - Laceration without foreign body of knee kb - Abrasion of left forearm kb - Abrasion of right forearm kb - Abrasion of left hand kb Followup: kb - With: Emergency Department - When: As needed - Reason: Worsening of condition Followup: kb - With: Private Physician - When: 2 - 3 days - Reason: Recheck today's complaints, Continuance of care, Re-evaluation by your physician Discharge Instructions: - Discharge Summary Sheet kb - Musculoskeletal Pain kb - Laceration Care, Adult, [id number] kb Forms: - Medication Reconciliation Form kb - Antibiotic Education kb - Prescription Opioid Use kb - Patient Portal Instructions kb - Leadership Thank You Letter kb Prescriptions: - Cephalexin 500 mg Oral Capsule - take 1 capsule ORAL route every 8 hours for 10 days; 30 capsule; Refills: 0, kb Product Selection Permitted - Diclofenac Sodium 75 mg Oral tablet, delayed release (enteric coated) - take 1 tablet ORAL route 2 times per day As needed; 30 tablet; Refills: 0, kb Product Selection Permitted - orphenadrine citrate 100 mg Oral Tablet Sustained Release - take 1 tablet ORAL route 2 times per day As needed; 20 tablet; Refills: 0, kb Product Selection Permitted Signatures: Dispatcher [employer] EDMS Leeanne Moran, WANT AD RECEIVER-C WANT AD RECEIVER-Ckb Martin Benavides MD MD cha Prokisch, Amanda RN RN ap3 Pilar Ibrahim RN RN ll1 Marleen Silva RN RN ld1 Pamela Drew RN ha1 Corrections: (The following items were deleted from the chart) 10/14 16:35 16:35 Forearm Right+RAD.RAD.BRZ ordered. EDMS EDMS 16:35 16:35 Knee Left 3 View+RAD.RAD.BRZ ordered. EDMS EDMS 16:35 16:35 Knee Right 3 View+RAD.RAD.BRZ ordered. EDMS EDMS 16:35 16:35 Head C Spine MPR Wo Con+CT.RAD.BRZ ordered. EDMS EDMS 16:35 16:35 Chest Abdomen Pelvis Wo Con+CT.RAD.BRZ ordered. EDMS EDMS
--- NOTE | 2024-10-14 19:12 | ER ---
Nurse's Notes [facility] Name: Hamilton Aguirre Sr Age: 54 yrs Sex: Male : 1970 Arrival Date: 10/14/2024 Time: 15:44 Bed 7 Private MD: Diagnosis: Fall on and from ladder, initial encounter;Laceration without foreign body of knee;Abrasion of left forearm;Abrasion of right forearm;Abrasion of left hand Presentation: 10/14 16:26 Chief complaint: Patient states: he fell with the ladder today. patient complains of ap3 pain to his left knee, left forearm, lower abdomen, right knee, right forearm \T\ forehead. patient currently rates his pain as a 8/10 on the pain scale. Coronavirus screen: At this time, the client does not indicate any symptoms associated with coronavirus-19. Ebola Screen: No symptoms or risks identified at this time. Initial Sepsis Screen: Does the patient meet any 2 criteria? No. Patient's initial sepsis screen is negative. Does the patient have a suspected source of infection? No. Patient's initial sepsis screen is negative. Risk Assessment: Do you want to hurt yourself or someone else? Patient reports no desire to harm self or others. Onset of symptoms was October 14, 2024. 16:26 Method Of Arrival: Ambulatory ap3 16:26 Acuity: BLAKE 2 ap3 Triage Assessment: 16:31 General: Appears in no apparent distress. Behavior is calm, cooperative, appropriate ap3 for age. Pain: Complains of pain in face, abdomen, right arm, left arm, right leg and left leg Pain currently is 8 out of 10 on a pain scale. Neuro: Level of Consciousness is awake, alert, obeys commands, Oriented to person, place, time, situation, Speech is normal. Cardiovascular: Patient's skin is warm and dry. Respiratory: Airway is patent Respiratory effort is even, unlabored, Respiratory pattern is regular, symmetrical. Historical: - Allergies: 16:29 No Known Allergies; ap3 - Home Meds: 16:30 Eliquis oral [Active]; ap3 - Immunization history:: Client reports receiving the 2nd dose of the Covid vaccine. - Infectious Disease History:: Denies. - Social history:: Smoking status: Patient denies any tobacco usage or history of. Screenin:31 Abuse screen: Denies threats or abuse. Nutritional screening: No deficits noted. ap3 Tuberculosis screening: No symptoms or risk factors identified. 17:04 [facility] ED Fall Risk Assessment (Adult) History of falling in the last 3 months, ld1 including since admission Yes- physiologic fall (2 pts) Confusion or Disorientation No (0 pts) Intoxicated or Sedated No (0 pts) Impaired Gait No (0 pts) Mobility Assist Device Used No (0 pt) Altered Elimination No (0 pt) Score/Fall Risk Level 0 - 2 = Low Risk Oriented to surroundings, Hourly rounding (assess needs \T\ fall precautionary measures) done. Assessment: 17:04 General: Appears in no apparent distress. comfortable, Behavior is calm, cooperative, ld1 appropriate for age. Pain: Complains of pain in face, scalp, right arm, left arm, right leg and left leg Pain does not radiate. Pain currently is 8 out of 10 on a pain scale. Quality of pain is described as throbbing, Pain began suddenly, Is continuous. Neuro: Level of Consciousness is awake, alert, obeys commands, Oriented to person, place, time, situation. Cardiovascular: Capillary refill < 3 seconds Patient's skin is warm and dry. Rhythm is sinus rhythm. Respiratory: Airway is patent Respiratory effort is even, unlabored. GI: Abdomen is round non-distended. : No signs and/or symptoms were reported regarding the genitourinary system. EENT: No signs and/or symptoms were reported regarding the EENT system. Derm: No signs and/or symptoms reported regarding the dermatologic system. Musculoskeletal: No signs and/or symptoms reported regarding the musculoskeletal system. 18:56 Reassessment: No changes from previously documented assessment. Patient and/or family ll1 updated on plan of care and expected duration. Pain level reassessed. Patient is alert, oriented x 3, equal unlabored respirations, skin warm/dry/pink. 19:24 Reassessment: Patient and/or family updated on plan of care and expected duration. Pain ha1 level reassessed. Patient is alert, oriented x 3, equal unlabored respirations, skin warm/dry/pink. Patient states feeling better. Patient states symptoms have improved. Vital Signs: 16:32 Pulse 80; Resp 17; Temp 98.5; Pulse Ox 98% on R/A; Weight 145.15 kg; Pain 8/10; ap3 17:04 BP 149 / 115; Pulse 83; Resp 18; Pulse Ox 95% on R/A; Pain 8/10; ld1 19:24 BP 140 / 95; Pulse 81; Resp 18 S; Pulse Ox 98% on R/A; ha1 16:32 Pain Scale: Adult ap3 17:04 Pain Scale: Adult ld1 ED Course: 15:46 Patient arrived in ED. mr 16:03 Leeanne Moran, [facility] kb 16:04 Martin Benavides MD is Attending Physician. kb 16:29 Triage completed. ap3 16:31 Arm band placed on right wrist. ap3 16:32 Patient has correct armband on for positive identification. Adult w/ patient. ap3 17:04 residential monitor on. Pulse ox on. NIBP on. Door closed. Noise minimized. Warm blanket ld1 given. 17:04 No provider procedures requiring assistance completed. ld1 17:16 Forearm Left XRAY In Process Unspecified. EDMS 17:16 Forearm Right XRAY In Process Unspecified. EDMS 17:16 Knee Left 3 View XRAY In Process Unspecified. EDMS 17:16 Knee Right 3 View XRAY In Process Unspecified. EDMS 17:28 CT Head C Spine In Process Unspecified. EDMS 17:28 CT Chest Abdomen Pelvis W/O Contrast In Process Unspecified. EDMS 19:26 Provided Education on: WOUND CARE AND FOLLOW UPS FOR STITCH REMOVAL . ha1 19:26 Patient did not have IV access during this emergency room visit. ha1 Administered Medications: 17:03 Drug: [place] PO 10 mg-325 mg 1 tabs PO once Route: PO; ld1 18:50 Follow up: Response: No adverse reaction; Pain is decreased; RASS: Alert and Calm (0) ll1 17:04 Drug: Boostrix Tdap IM 0.5 ml IM once; as a single dose Route: IM; Site: right deltoid; ld1 18:50 Follow up: Response: No adverse reaction ll1 18:55 Drug: Diazepam PO 5 mg PO once Route: PO; ll1 19:27 Follow up: Response: No adverse reaction; Marked relief of symptoms ha1 18:56 Drug: Lidocaine Infiltration (1 %) 1 vials 20 ml Infiltration once; to bedside {Note: ll1 by ABDULAZIZ Koch during suture repair.} Volume: 20 ml; Route: Infiltration; 19:27 Follow up: Response: No adverse reaction; Marked relief of symptoms ha1 Medication: 17:04 Vaccine Information Statement (VIS) provided today. Questions and/or concerns ld1 addressed. VIS edition date: October 14, 2024. Outcome: 19:11 Discharge ordered by MD. carver 19:25 Discharged to home ambulatory, with family, ha1 19:25 Condition: stable 19:25 Discharge instructions given to patient, Instructed on discharge instructions, follow up and referral plans. medication usage, Demonstrated understanding of instructions, follow-up care, medications, Prescriptions given X 3, 19:28 Patient left the ED. ha1 Signatures: Dispatcher [employer] EDMS Leeanne Moran, ROBER CINTRON-Ellen Jain, Reg Reg mr ScottyLilly, RN RN ap3 Pilar Ibrahim RN RN ll1 Marleen Silva RN RN ld1 Pamela Drew, RN RN ha1 Corrections: (The following items were deleted from the chart) 17:06 17:04 VIS not applicable for this client. ld1 ld1
[2024-10-14 20:44] VITALS: TEMP 98.5
[2024-10-14 20:46] VITALS: BP 140/95; O2SAT 98
== END 2024-10-14 19:28 | disposition home or self-care (01) ==
LOC: ER 15:44
DX: S81.012A Laceration without foreign body, left knee, initial encounter (principal); S50.812A Abrasion of left forearm, initial encounter; S50.811A Abrasion of right forearm, initial encounter; S60.512A Abrasion of left hand, initial encounter; W11.XXXA Fall on and from ladder, initial encounter; Z79.01 Long term (current) use of anticoagulants
CPT/HCPCS: 70450; 71250; 72125; 74176; 73090 ×2; 73562 ×2; 90715; 96372; 99285; 12032; J2003

== ENCOUNTER 2024-11-15 21:21 | Emergency (ER) | payer OTHER ==
--- OUTSIDE RECORDS SUMMARY | 2024-11-15 21:25 | XMS REPORT | Continuity of Care Document ---
Author Name Unknown Address [address] [place] [address] [facility] Address [address] [place] [address] Care Team Providers Care Shop Service Technician Name Role Phone ZAIRA TOM Primary Care Physician KEYA Lucero Attending Clinician Zaira Valentine MD Attending Clinician + [phone] ZAIRA TOM Attending Clinician Chelo Viera MA Attending Clinician Unavail able ALAN LOPEZ Attending Clinician ALAN Curtis Attending Clinician Unavailjayden Cruz, Ang - Db Attending Clinician Unavailable Zaira Tom MD Attending Clinician + [phone] Alan Lopez MD Attending Clinician [phone] Doctor Unassigned, [place] Attending Clinician Micah Marti MD Attending Clinician [phone] Jae Choudhury Attending Clinician [phone] JAE IVERSON Attending Clinician Unavailable Provider, [facility] Attending Clinician Un available Candie Calvo Attending Clinician [phone] CANDIE PATEL Attending Clinician Unavailable RIANNA URBINA Attending Clinician Unavaila ble Lab, Adc Fam Pob I Attending Clinician Unavailab Keya Serrano MD Attending Clinician + [phone] Only, Adc Test Attending Clinician Unavailable Adelaide Beasley F Attending Clinician [phone] MELVI LEMUS Attending Clinician Unavailable COLIN GAMINO Attending Clinician Un available Mika COOK, Mary Attending Clinician [phone] Joaquín Caba MD Attending Clinician [phone] KEYA KIM Admitting Clinician Keya Nash MD Admitting Clinician + [phone] Payers Payer Name Policy Type Policy Number Effective Date Expirati on Date Source [employer] [place] - OUT OF [place] [id number] 2015 00:00:00 [facility] ADV [id number] 2021 00:00:00 Problems Condition Name Condition Details Condition Category Status Onset Date Resolution Date Last Treatment Date Treating Clinician Comments Source Mood disorder Mood disorder Disease Active 12-26 00:00: 00 [facility] Benign prostatic hyperplasi a with urinary frequency Benign prostatic hyperplasi a with urinary frequency Disease Active 10-10 00:00: 00 Overview: Formattin g of this note might be different from the original. Added automatic ally from request for surgery [id number] [facility] Uncontroll ed type 2 diabetes mellitus with microalbum inuria, without long-term current use of insulin Uncontroll ed type 2 diabetes mellitus with microalbum inuria, without long-term current use of insulin Disease Active 08-10 00:00: 00 [facility] Elevated liver enzymes Elevated liver enzymes Disease Active 08-10 00:00: 00 [facility] Mass Mass Disease Active 08-10 00:00: 00 [facility] Hyperlipid emia, unspecifie d hyperlipid emia type Hyperlipid emia, unspecifie d hyperlipid emia type Disease Active 08-10 00:00: 00 [facility] Leukocytos is, unspecifie d type Leukocytos is, unspecifie d type Disease Active 08-10 00:00: 00 [facility] Bilateral edema of lower extremity Bilateral edema of lower extremity Disease Active 12-22 00:00: 00 [facility] Essential hypertensi on Essential hypertensi on Disease Active 2014-07 00:00: 00 [facility] Type 2 diabetes mellitus without complicati on Type 2 diabetes mellitus without complicati on Disease Resolve d 11-02 00:00: 00 2017-08-10 00:00:00 2017-08-10 08:20:48 [facility] Type 2 diabetes mellitus without complicati on Type 2 diabetes mellitus without complicati on Disease Resolve d 11-02 00:00: 00 2017-08-10 00:00:00 2017-08-10 08:20:48 [facility] Allergies, Adverse Reactions, Alerts Allergy Name Allergy Type Status Severity Reaction(s) Onset Date Inactive Date Treating Clinician Comments Source NO KNOWN ALLERGIE S Drug Class Active [facility] Social History Social Habit Start Date Stop Date Quantity Comments Source Gender identity [facility] Sexual orientation [facility] History SDOH Alcohol Frequency [facility] History SDOH [facility] Alcohol Binge [facility] Alcoholic beverage intake 2024-08-11 00:00:00 2024-08-11 00:00:00 0 /d [facility] History of Social function 2024-02-11 00:00:00 2024-02-11 00:00:00 [facility] Cigarettes smoked current (pack per day) - Reported 2024-02-11 00:00:00 2024-02-11 00:00:00 [facility] Cigarette pack-years 2024-02-11 00:00:00 2024-02-11 00:00:00 [facility] Tobacco use and exposure 2024-02-11 00:00:00 2024-02-11 00:00:00 Smokeless tobacco non-user [facility] Exposure to SARS-CoV-2 (event) 2022-11-20 00:00:00 2022-11-30 08:08:00 Not sure [facility] Alcohol intake 2022-11-30 00:00:00 2022-11-30 00:00:00 0 /d [facility] History of tobacco use 1989-06-18 00:00:00 2019-06-18 00:00:00 Cigarette Smoker [facility] Alcohol Comment 2015-06-22 00:00:00 2015-06-22 00:00:00 rarely [facility] Sex assigned at 1970 00:00:00 1970 00:00:00 [facility] Smoking Status Start Date Stop Date Source Tobacco smoking consumption unknown [facility] Ex-smoker 2024-02-11 00:00:00 2024-02-11 00:00:00 [facility] Medications Ordered Medication Name Filled Medication Name Start Date Stop Date Current Medication? Ordering Clinician Indication Dosage Frequency Signature (SIG) Comments Components Source semaglutide (OZEMPIC) 1 mg/dose (4 mg/3 mL) Ij 5-0 08 00:00: 00 Yes [id number] 1mg inject 1 mg under the skin weekly. [facility] semaglutide (OZEMPIC) 0.25 mg or 0.5 mg (2 mg/3 mL) Ij 2024- 2-03 00:00: 00 11-13 00:00 :00 No [id number] .25mg inject 0.25 mg under the skin 2 (two) times per week. [facility] metformin ER 500 mg 24 hr tablet 2023-07 0-29 00:00: 00 Yes [id number] 1000mg Take 2 tablets by mouth every morning and evening. [facility] tamsulosin 0.4 mg 24 hr capsule 9-23 00:00: 00 Yes [id number] 01 .4mg Take 1 capsule by mouth at bedtime. [facility] semaglutide (OZEMPIC) 0.25 mg or 0.5 mg(2 mg/1.5 mL) PnIj 03-31 00:00: 00 08-11 00:00 :00 No [id number] .25mg inject 0.25 mg under the skin weekly. [facility] metformin ER 500 mg 24 hr tablet 03-31 00:00: 00 05-06 00:00 :00 No [id number] 1000mg Take 2 tablets by mouth every morning and evening. [facility] carvediloL 25 mg tablet 02-10 00:00: 00 Yes [id number] 25mg Take 1 tablet by mouth in the morning and 1 tablet in the evening. Take with meals. [facility] SERTraline 50 mg tablet 02-10 00:00: 00 Yes [id number] 50mg Take 1 tablet by mouth every morning. [facility] lisinopriL 40 mg tablet 02-10 00:00: 00 Yes [id number] 40mg Take 1 tablet by mouth in the morning. Please contact office for appointmen t for further refills. [facility] clindamycin 150 mg capsule 02-10 00:00: 00 03-31 00:00 :00 No [id number] 150mg Take 1 capsule by mouth in the morning and 1 capsule at noon and 1 capsule in the evening. [facility] SERTraline 50 mg tablet 12-19 00:00: 00 02-10 00:00 :00 No [id number] 50mg TAKE 1 TABLET BY MOUTH EVERY DAY IN THE MORNING [facility] amiodarone 200 mg tablet 11-30 08:17: 12 02-10 00:00 :00 No 200mg Take 1 tablet by mouth in the morning. [facility] ibuprofen 200 mg tablet 11-30 08:15: 10 11-30 00:00 :00 No 600mg Take 600 mg by mouth 2 (two) times daily with meals. [facility] isosorbide mononitrate 30 mg 24 hr tablet 11-30 08:15: 07 11-30 00:00 :00 No 30mg Take 30 mg by mouth daily. [facility] naproxen sodium (ALEVE) 220 mg tablet 11-30 08:15: 04 11-30 00:00 :00 No 440mg Take 440 mg by mouth 2 (two) times daily with meals. [facility] omeprazole 20 mg capsule 11-30 08:15: 01 11-30 00:00 :00 No 20mg Take 20 mg by mouth daily. [facility] metformin ER 500 mg 24 hr tablet 11-30 00:00: 00 03-30 00:00 :00 No [id number] 1000mg Take 2 tablets by mouth every morning and evening. [facility] SITagliptin phosphate (JANUVIA) 100 mg tablet 11-30 00:00: 00 02-10 00:00 :00 No [id number] 100mg Take 1 tablet by mouth in the morning. [facility] SERTraline 50 mg tablet 11-30 00:00: 00 12-19 00:00 :00 No [id number] 50mg Take 1 tablet by mouth in the morning. [facility] metformin ER 500 mg 24 hr tablet 4-11 00:00: 00 11-30 00:00 :00 No [id number] 1000mg TAKE 2 TABLETS BY MOUTH EVERY MORNING AND EVENING. [facility] METFORMIN ER 500 mg 24 hr tablet - 00:00: 00 Yes [id number] 1000mg TAKE 2 TABLETS BY MOUTH EVERY MORNING AND EVENING. [facility] metformin ER 500 mg 24 hr tablet 3-03 00:00: 00 10-03 00:00 :00 No [id number] 1000mg Take 2 tablets by mouth every morning and evening. [facility] metformin ER 500 mg 24 hr tablet 2-22 00:00: 00 09-08 00:00 :00 No [id number] TAKE 2 TABLETS BY MOUTH IN THE MORNING AND 2 IN THE EVENING [facility] SITagliptin phosphate (JANUVIA) 100 mg tablet 1-13 00:00: 00 11-30 00:00 :00 No [id number] 100mg Take 1 tablet by mouth in the morning. [facility] metformin ER 500 mg 24 hr tablet 1-12 00:00: 00 Yes [id number] 1000mg Take 2 tablets by mouth in the morning and 2 tablets in the evening. [facility] METFORMIN ER 500 mg 24 hr tablet 2021-07- 00:00: 00 Yes [id number] TAKE 2 TABLETS BY MOUTH TWICE DAILY [facility] METFORMIN ER 500 mg 24 hr tablet 2021-07- 00:00: 00 Yes [id number] TAKE 2 TABLETS BY MOUTH TWICE A DAY [facility] METFORMIN ER 500 mg 24 hr tablet 04-04 00:00: 00 Yes [id number] TAKE 2 TABLETS BY MOUTH TWICE A DAY [facility] atorvastati n 40 mg tablet 12-26 11:35: 36 12-26 00:00 :00 No 40mg Take 40 mg by mouth at bedtime. [facility] metformin ER 500 mg 24 hr tablet 12-26 00:00: 00 04-04 00:00 :00 No [id number] 1000mg Take 2 tablets by mouth 2 (two) times daily. [facility] SITagliptin (JANUVIA) 100 mg tablet 12-26 00:00: 00 03-27 04:59 :00 No [id number] 100mg Take 1 tablet by mouth daily for 90 days. [facility] atorvastati n 40 mg tablet 12-26 00:00: 00 03-27 04:59 :00 No [id number] 40mg Take 1 tablet by mouth at bedtime for 90 days. [facility] SERTraline 50 mg tablet 20 00:00: 00 03-27 04:59 :00 No [id number] 50mg Take 1 tablet by mouth daily for 90 days. [facility] METFORMIN ER 500 mg 24 hr tablet 606 00:00: 00 12-26 00:00 :00 No [id number] TAKE 2 TABLETS BY MOUTH TWICE A DAY [facility] JANUVIA 100 mg tablet 131 00:00: 00 12-26 00:00 :00 No [id number] TAKE 1 TABLET BY MOUTH EVERY DAY [facility] SERTRALINE 50 mg tablet 2020-07 00:00: 00 12-26 00:00 :00 No [id number] TAKE 1 TABLET BY MOUTH EVERY DAY [facility] BABY ASPIRIN ORAL 10-25 14:40: 00 Yes Take by mouth. [facility] hydroCHLORO thiazide 25 mg tablet 2019-07 16:04: 28 Yes 25mg Take 25 mg by mouth daily. [facility] apixaban 5 mg tablet 2019-07 16:03: 40 Yes 5mg Take 5 mg by mouth 2 (two) times daily. [facility] amiodarone 200 mg tablet 2019-07 16:03: 40 Yes 200mg Take 200 mg by mouth daily. [facility] isosorbide mononitrate 30 mg 24 hr tablet 2019-07 16:03: 40 Yes 30mg Take 30 mg by mouth daily. [facility] omeprazole 20 mg capsule 2019-07 16:03: 40 Yes 20mg Take 20 mg by mouth daily. [facility] ibuprofen 200 mg tablet 04-07 11:01: 56 Yes 600mg Take 600 mg by mouth 2 (two) times daily with meals. [facility] naproxen sodium (ALEVE) 220 mg tablet 04-07 11:01: 56 Yes 440mg Take 440 mg by mouth 2 (two) times daily with meals. [facility] cyclobenzap rine 5 mg tablet 02-24 00:00: 00 11-30 00:00 :00 No TAKE 1 TABLET BY MOUTH 3 TIMES A DAY NEEDED FOR MUSCLE SPASMS [facility] cloNIDine 0.1 mg tablet 02-23 00:00: 00 02-10 00:00 :00 No TAKE 1 TABLET BY MOUTH EVERY 8 HOURS NEEDED FOR SBP 170 ORALLY 30 DAY(S) 90 [facility] amLODIPine 10 mg tablet 02-12 00:00: 00 Yes 10mg Take 1 tablet by mouth in the morning. [facility] lisinopril 40 mg tablet 01-11 00:00: 00 02-10 00:00 :00 No [id number] 40mg Take 1 tablet by mouth daily. Please contact office for appointmen t for further refills. [facility] blood sugar diagnostic (FREESTYLE LITE STRIPS) strip 07-29 00:00: 00 Yes [id number] TEST 1 TO 2 TIMES DAILY [facility] blood sugar diagnostic (FREESTYLE LITE STRIPS) strip 07-29 00:00: 00 Yes [id number] TEST 1 TO 2 TIMES DAILY [facility] oxybutynin 10 mg 24 hr tablet 2018-07 00:00: 00 11-30 00:00 :00 No [id number] 10mg Take 1 tablet by mouth daily. [facility] carvedilol 25 mg tablet 09-10 00:00: 00 02-10 00:00 :00 No [id number] 25mg Take 1 tablet by mouth 2 (two) times daily with meals. [facility] metformin ER (GLUCOPHAGE -XR) 500 mg 24 hr tablet 2014-07 00:00: 00 05-22 00:00 :00 No [facility] TRUERESULT BLOOD GLUCOSE SYSTM Kit 03-31 00:00: 00 Yes [facility] TRUETEST TEST STRIPS strip 03-31 00:00: 00 Yes [facility] TRUEPLUS LANCETS 30 gauge Misc 03-31 00:00: 00 Yes [facility] TRUERESULT BLOOD GLUCOSE SYSTM Kit 03-31 00:00: 00 Yes [facility] TRUETEST TEST STRIPS strip 03-31 00:00: 00 Yes [facility] TRUEPLUS LANCETS 30 gauge [facility] [place]-0 03-31 00:00: 00 Yes [facility] Immunizations Ordered Immunization Name Filled Immunization Name Date Status Comments Source SARS-COV-2 COVID-19 PFIZER VACCINE 2023-12-19 00:00:00 Completed [facility] SARS-COV-2 COVID-19 PFIZER VACCINE 2020-09-25 00:00:00 Completed [facility] SARS-COV-2 COVID-19 PFIZER VACCINE 2020-09-25 00:00:00 Completed [facility] SARS-COV-2 COVID-19 PFIZER VACCINE 2020-09-04 00:00:00 Completed [facility] SARS-COV-2 COVID-19 PFIZER VACCINE 2020-09-04 00:00:00 Completed [facility] Vital Signs Vital Name Observation Time Observation Value Comments S ource Systolic blood pressure 2024-08-11 15:37:00 131 mm[Hg] [facility] Diastolic blood pressure 2024-08-11 15:37:00 88 mm[Hg] [facility] Heart rate 2024-08-11 15:37:00 61 /min [facility] Body weight 2024-08-11 15:37:00 146.058 kg [facility] BMI 2024-08-11 15:37:00 43.67 kg/m2 [facility] Systolic blood pressure 2024-03-31 20:35:00 135 mm[Hg] [facility] Diastolic blood pressure 2024-03-31 20:35:00 84 mm[Hg] [facility] Heart rate 2024-03-31 20:30:00 65 /min [facility] Body weight 2024-03-31 20:30:00 152.862 kg [facility] BMI 2024-03-31 20:30:00 45.71 kg/m2 [facility] Systolic blood pressure 2024-02-11 13:08:00 148 mm[Hg] [facility] Diastolic blood pressure 2024-02-11 13:08:00 95 mm[Hg] [facility] Heart rate 2024-02-11 13:07:00 69 /min Unive [facility] Body temperature 2024-02-11 13:07:00 36.78 [place] [facility] Body height 2024-02-11 13:07:00 182.9 cm [facility] Body weight 2024-02-11 13:07:00 154.677 kg [facility] BMI 2024-02-11 13:07:00 46.25 kg/m2 [facility] Systolic blood pressure 2022-11-30 13:15:00 133 mm[Hg] [facility] Diastolic blood pressure 2022-11-30 13:15:00 77 mm[Hg] [facility] Heart rate 2022-11-30 13:15:00 65 /[facility] 2022-11-30 13:15:00 182.9 cm [facility] Body weight 2022-11-30 13:15:00 154.677 kg [facility] BMI 2022-11-30 13:15:00 46.25 kg/m2 [facility] Diastolic blood pressure 2021-12-26 16:13:00 113 mm[Hg] [facility] Heart rate 2021-12-26 16:13:00 75 /min Unive [facility] Body height 2021-12-26 16:13:00 182.9 cm [facility] Body weight 2021-12-26 16:13:00 158.033 kg [facility] BMI 2021-12-26 16:13:00 47.25 kg/m2 [facility] Oxygen saturation in Arterial blood by Pulse oximetry 2021-12-26 16:13:00 97 /min [facility] Systolic blood pressure 2021-12-26 16:13:00 180 mm[Hg] [facility] Procedures Procedure Date / Time Performed Performing Clinician Source POCT HEMOGLOBIN A1C TEST 2024-08-11 00:00:00 Zaira aPtino [facility] EXTERNAL PROVIDER RECORDS 2023-01-15 05:01:00 Do ctor Unassigned, [place] [facility] HEMOGLOBIN A1C-Q 2022-11-30 14:23:00 Marcello Tom [facility] PSA, TOTAL-Q 2022-11-30 14:23:00 Cisco Tom [facility] CBC (INCLUDES DIFF/PLT)-Q 2022-11-30 14:23:00 Zaira Shetty [facility] MICROALBUMIN, RANDOM URINE (W/CREATININE)-Q 2022-11-30 14:23:00 Zaira Tom [facility] LIPID PANEL-Q 2022-11-30 14:23:00 Cisco Tom [facility] COMPREHENSIVE METABOLIC$PANEL W/EGFR-Q 2022-11-30 14:23:00 Zaira Tom [facility] PATIENT FINANCIAL POLICY 2022-11-30 13:09:40 Doctor Unassigned, [place] [facility] INSURANCE CORRESPONDENCE 2022-03-02 05:01:00 Doc tor Unassigned, [place] [facility] NOTICE OF PRIVACY PRACTICES 2015-06-22 16:17:07 Doctor Unassigned, [place] [facility] CONSENT/REFUSAL FOR DIAGNOSIS AND TREATMENT 2015-06-22 16:16:23 Doctor Unassigned, [place] [facility] Encounters Start Date/Time End Date/Time Encounter Type Admission Type Attending Clinicians Care Facility Care Department Encounter ID Source 2021-05-06 18:18:10 Outpatient R KEYA SNYDER [facility] JULIANA [id number] [facility] 2021-05-06 14:16:17 Emergency [facility] [id number] [facility] 2019-05-19 13:05:00 Inpatient E [facility] MED [id number] [facility] 2024-11-12 00:00:00 2024-11-13 07:35:43 Patient Secure Zaira Samano [facility] ALLY MORALES?[facility] 1.2.840.114 350.1.13.10 4.2.7.2.686 [id number] [facility] 2024-11-03 15:30:00 2024-11-03 15:30:00 Outpatient Shelbie COHENMARTA ZAIRA [facility] [id number] [facility] 2015-06-18 00:00:00 2024-08-23 04:22:16 Orders Only Tessa, [facility] M[facility]HAV CANALES 1.2840.114 350.1.13.10 4.2.7.2.686 [id number] [facility] 2024-08-11 09:45:00 2024-08-11 09:55:23 Outpatient Shelbie TOM ZAIRA [facility] [id number] [facility] 2024-08-11 09:45:00 2024-08-11 09:55:23 Office Visit MosheZaira serrano [facility] 1.2840.114 350.1.13.10 4.2.7.2.686 [id number] [facility] 2024-05-06 00:00:00 2024-05-06 11:35:11 Telephone Rehana [facility] 1.2840.114 350.1.13.10 4.2.7.2.686 [id number] [facility] 2024-04-29 00:00:00 2024-04-29 11:26:07 Telephone Rehana [facility] 1.2840.114 350.1.13.10 4.2.7.2.686 [id number] [facility] 2024-04-24 00:00:00 2024-04-25 08:02:34 [facility] 1.2840.114 350.1.13.10 4.2.7.2.686 [id number] [facility] 2024-04-22 00:00:00 2024-04-23 09:39:41 [facility] 1.2.840.114 350.1.13.10 4.2.7.2.686 [id number] [facility] 2024-04-16 00:00:00 2024-04-16 11:30:50 [facility] 1.2.840.114 350.1.13.10 4.2.7.2.686 [id number] [facility] 2024-04-15 00:00:00 2024-04-15 10:28:05 Telephone Zaira Tom [facility]REW[facility] 1.2.840.114 350.1.13.10 4.2.7.2.686 [id number] [facility] 2024-04-11 00:00:00 2024-04-15 09:52:46 Telephone [facility] 1.2840.114 350.1.13.10 4.2.7.2.686 [id number] [facility] 2024-04-01 00:00:00 2024-04-01 13:39:40 Telephone [facility]aira [facility]m [facility] 1.2.840.114 350.1.13.10 4.2.7.2.686 [id number] [facility] 2024-03-31 15:45:00 2024-03-31 16:15:00 Office Visit Zaira Tom [facility] ANDREW?[facility] 1.2.840.114 350.1.13.10 4.2.7.2.686 [id number] [facility] 2024-03-31 15:45:00 2024-03-31 15:45:00 Outpatient ZAIRA LOMELI [facility] [id number] [facility] 2024-03-30 00:00:00 2024-03-31 13:49:28 [facility] 1..840.114 350.1.13.10 4.2.7.2.686 [id number] [facility] 2024-03-19 10:00:00 2024-03-19 10:00:00 Outpatient ALAN SÁNCHEZ STRAOKLeon [facility] [id number] [facility] 2024-02-16 00:00:00 2024-02-18 14:39:22 [facility] 1..840.114 350.1.13.10 4.2.7.2.686 [id number] [facility] 2024-02-14 00:00:00 2024-02-14 16:13:54 [facility] 1..840.114 350.1.13.10 4.2.7.2.686 [id number] [facility] 2024-02-11 09:00:00 2024-02-11 09:15:00 Material Processor Visit Lab, Zaira Zhao Lab, [place] Farmer [facility] 1..840.114 350.1.13.10 4.2.7.2.686 [id number] [facility] 2024-02-11 09:00:00 2024-02-11 09:00:00 Outpatient R ZAIRA TOM [facility] [id number] [facility] 2024-02-11 08:30:00 2024-02-11 09:00:00 Office Visit Zaira Tom [facility] ANDREW?[facility] MEDICAL OFFICE BUILDING 1.2.840.114 350.1.13.10 4.2.7.2.686 [id number] [facility] 2024-01-12 00:00:00 2024-01-15 14:03:44 Refill Zaira Tom [facility] ANDREW?[facility] MEDICAL OFFICE BUILDING 1.2.840.114 350.1.13.10 4.2.7.2.686 [id number] [id number] [facility] 2024-01-08 00:00:00 2024-01-08 08:32:19 Refill Zaira Tom [facility] ANDREW?[facility] MEDICAL OFFICE BUILDING 1.2.840.114 350.1.13.10 4.2.7.2.686 [id number] [facility] 2023-12-27 00:00:00 2024-01-02 11:19:01 Telephone Alan Lopez [facility] N[facility] BU[facility] 1..840.114 350.1.13.10 4.2.7.2.686 [id number] [facility] 2023-12-19 00:00:00 2023-12-20 10:15:09 Refill Zaira Tom [facility] ANDREW?[facility] MEDICAL OFFICE BUILDING 1.2.840.114 350.1.13.10 4.2.7.2.686 [id number] 044 [id number] [facility] 2023-01-15 00:00:00 2023-01-15 00:00:00 Orders Only Doctor Unassigned, [place] [facility] 1.114 350.1.13.10 4.2.7.2.686 [id number] [facility] 2022-12-07 09:15:00 2022-12-07 09:15:00 Outpatient R ZAIRA TOM [facility] [id number] [facility] 2022-12-05 00:00:00 2022-12-05 00:00:00 Telephone Zaira Tom [facility] NAL BUILDING 1.840.114 350.1.13.10 4.2.7.2.686 [id number] [facility] 2022-11-30 08:00:00 2022-11-30 08:38:21 Outpatient ZAIRA LOMELI [facility] [id number] [facility] 2022-11-30 08:00:00 2022-11-30 08:38:21 [facility] OFF[facility] BUILDING 1.840.114 350.1.13.10 4.2.7.2.686 [id number] 044 [id number] [facility] 2022-11-30 00:00:00 2022-11-30 00:00:00 Orders Only Doctor Unassigned, [place] [facility] 1.84.114 350.1.13.10 4.2.7.2.686 [id number] [facility] 2022-11-30 00:00:00 2022-11-30 00:00:00 Telephone Zaira Tom [facility]?KATHEJayden [facility] OFF[facility] BUILDING 1.840.114 350.1.13.10 4.2.7.2.686 [id number] 044 [id number] [facility] 2022-11-27 00:00:00 2022-11-27 00:00:00 Refill Zaira Tom [facility] MEDICAL OFFICE BUILDING 1.0.114 350.1.13.10 4.2.7.2.686 [id number] 044 [id number] [facility] 2022-10-17 00:00:00 2022-10-17 00:00:00 Refill Zaira Tom [facility] ANDREW?[facility] OFF[facility] BUILDING 1.840.114 350.1.13.10 4.2.7.2.686 [id number] [facility] 2022-10-03 00:00:00 2022-10-03 00:00:00 Refill Zaira Tom [facility] ANDREW?[facility] MEDICAL OFFICE BUILDING 1.114 350.1.13.10 4.2.7.2.686 [id number] 044 [id number] [facility] 2022-09-25 13:45:00 2022-09-25 13:45:00 Outpatient R MOSHEISAUROZAIRA [facility] [id number] [facility] 2022-09-08 00:00:00 2022-09-08 00:00:00 Telephone Zaira Tom [facility] ANDREW[facility] 1.114 350.1.13.10 4.2.7.2.686 [id number] [facility] 2022-09-04 00:00:00 2022-09-04 00:00:00 Telephone Zaira Tom [facility] ANDREW?[facility] MEDICAL OFFICE BUILDING 1..114 350.1.13.10 4.2.7.2.686 [id number] [id number] [facility] 2022-08-30 00:00:00 2022-08-30 00:00:00 Refill Micah Page [facility] ANDREW?[facility] MED[facility] OFFICE BUILDING 1..114 350.1.13.10 4.2.7.2.686 [id number] 044 [id number] [facility] 2022-07-20 00:00:00 2022-07-20 00:00:00 [facility] MEDICAL OFFICE BUILDING 1.2840.114 350.1.13.10 4.2.7.2.686 [id number] 044 [id number] [facility] 2022-07-20 00:00:00 2022-07-20 00:00:00 Telephone Jae Iverson [facility] ANDREW?[facility] MEDICAL OFFICE BUILDING 1..114 350.1.13.10 4.2.7.2.686 [id number] [facility] 2022-07-02 00:00:00 2022-07-02 00:00:00 Refill Micah Page [facility] ANDREW?[facility] MEDICAL OFFICE BUILDING 1.0.114 350.1.13.10 4.2.7.2.686 [id number] [facility] 2022-05-11 00:00:00 2022-05-11 00:00:00 Refill J[facility] MEDICAL OFFICE BUILDING 1.840.114 350.1.13.10 4.2.7.2.686 [id number] [id number] [facility] 2022-04-03 00:00:00 2022-04-03 00:00:00 Refill Jae Iverson [facility] ANDREW?[facility] MEDICAL OFFICE BUILDING 1..114 350.1.13.10 4.2.7.2.686 [id number] 044 [id number] [facility] 2022-03-02 00:00:00 2022-03-02 00:00:00 Orders Only Doctor Unassigned, [place] [facility] 1.2.114 350.1.13.10 4.2.7.2.686 [id number] [facility] 2022-01-08 00:00:00 2022-01-08 00:00:00 [facility] 1.2.840.114 350.1.13.10 4.2.7.2.686 [id number] 044 [id number] [facility] 2021-12-26 11:00:00 2021-12-26 11:43:27 Outpatient R ALTAGRACIA JAE [facility] [id number] [facility] 2021-12-26 11:00:00 2021-12-26 11:43:27 Office Visit Jae Iverson [facility] ANDREW?[facility] BUILDING 1.84.114 350.1.13.10 4.2.7.2.686 [id number] 044 [id number] [facility] 2021-12-10 00:00:00 2021-12-10 00:00:00 Nathalie Tom [facility] BUILDING 1.840.114 350.1.13.10 4.2.7.2.686 [id number] [facility] 2021-08-07 00:00:00 2021-08-07 00:00:00 Nathalie Tom [facility] OFFICE BUILDING ONE 1.84.114 350.1.13.10 4.2.7.2.686 [id number] 044 [id number] [facility] 2021-05-16 00:00:00 2021-05-16 00:00:00 Nathalie Tom [facility] OFFICE BUILDING ONE 1.84.114 350.1.13.10 4.2.7.2.686 [id number] 044 [id number] [facility] 2020-12-18 00:00:00 2020-12-18 00:00:00 Refill Zaira Tom [facility] Office Building One 1..840.114 350.1.13.10 4.2.7.2.686 [id number] [id number] [facility] 2020-10-25 14:26:50 2020-10-25 14:56:50 Office Visit MosheZaira serrano [facility] Office Building One 1.840.114 350.1.13.10 4.2.7.2.686 [id number] [facility] 2020-10-25 14:30:00 2020-10-25 14:30:00 Outpatient ZAIRA LOMELI [facility] [id number] [facility] 2020-10-22 00:00:00 2020-10-22 00:00:00 Refdenis Zaira Tom [facility] Office Building One 1.840.114 350.1.13.10 4.2.7.2.686 [id number] 044 [id number] [facility] 2020-09-25 14:45:00 2020-09-25 14:45:00 Outpatient [facility] [id number] [facility] 2020-09-04 14:35:00 2020-09-04 14:35:00 Outpatient [facility] [id number] [facility] 2020-07-17 00:00:00 2020-07-17 00:00:00 Refill Zaira Tom [facility] Office Building One 1.840.114 350.1.13.10 4.2.7.2.686 [id number] [id number] [facility] 2020-05-20 08:15:00 2020-05-20 08:15:00 Outpatient ZAIRA LOMELI [facility] [id number] [facility] 2020-05-20 07:09:26 2020-05-20 07:24:26 Telemedici ne Visit Zaira Tom [facility] Office Building One 1..114 350.1.13.10 4.2.7.2.686 [id number] [facility] 2020-05-17 13:15:00 2020-05-17 13:15:00 Outpatient R ZAIRA TOM [facility] [id number] [facility] 2020-05-12 00:00:00 2020-05-12 00:00:00 Refill Zaira Tom [facility] Office Building One 1..114 350.1.13.10 4.2.7.2.686 [id number] [id number] [facility] 2020-04-29 16:54:31 2020-04-29 17:14:31 Urgent Care Provider, [facility] Rosyaxel [facility] Office Building One 1..114 350.1.13.10 4.2.7.2.686 [id number] 044 [id number] [facility] 2020-04-29 17:00:00 2020-04-29 17:00:00 Outpatient R AMANDA CANDIE [facility] [id number] [facility] 2020-04-28 16:40:00 2020-04-28 16:40:00 Outpatient RIANNA PAEZ [facility] [id number] [facility] 2020-04-27 17:55:48 2020-04-27 18:15:48 Laboratory Only Lab, Adc Fam Pob I Rosyaxel [facility] Office Building One 1..114 350.1.13.10 4.2.7.2.686 [id number] 044 [id number] [facility] 2020-04-27 18:00:00 2020-04-27 18:00:00 Outpatient R [facility] [id number] [facility] 2020-04-19 15:45:13 2020-04-19 16:00:13 [facility] 1.284.114 350.1.13.10 4.2.7.2.686 [id number] [facility] 2020-04-19 15:45:00 2020-04-19 15:45:00 Outpatient R ZAIRA TOM [facility] [id number] [facility] 2020-04-07 07:40:00 2020-04-07 10:55:00 Hospital Encounter Keya Snyder [facility] 1.84.114 350.1.13.10 4.2.7.2.686 [id number] [facility] 2020-04-06 13:51:44 2020-04-06 14:06:44 Laboratory Only Only, Adc Test Keya Snyder [facility] 1.840.114 350.1.13.10 4.2.7.2.686 [id number] [facility] 2020-04-06 13:45:00 2020-04-06 13:45:00 Outpatient R KEYA SNYDER [facility] [id number] [facility] 2020-04-06 00:00:00 2020-04-06 00:00:00 Orders Only Doctor Unassigned, [place] [facility] 1.84.114 350.1.13.10 4.2.7.2.686 [id number] [facility] 2020-03-11 10:15:00 2020-03-11 10:15:00 Outpatient R ZAIRA TOM [facility] [id number] [facility] 2020-03-11 08:09:41 2020-03-11 08:24:41 Telemedici ne Visit Zaira Tom [facility] Building 1.114 350.1.13.10 4.2.7.2.686 [id number] [facility] 2020-03-03 11:30:00 2020-03-03 11:30:00 Outpatient R ZAIRA TOM [facility] [id number] [facility] 2020-03-01 17:14:00 2020-03-01 21:36:00 Emergency Adelaide Chavez F [facility] 1..114 350.1.13.10 4.2.7.2.686 [id number] [facility] 2020-03-01 00:00:00 2020-03-01 00:00:00 Telephone Hadleymarta Zaira [facility] Office Building One 1.114 350.1.13.10 4.2.7.2.686 [id number] 044 [id number] [facility] 2020-03-01 00:00:00 2020-03-01 00:00:00 Orders Only Doctor Unassigned, [place] [facility] 1.114 350.1.13.10 4.2.7.2.686 [id number] [facility] 2020-02-27 23:51:00 2020-02-28 03:49:00 Emergency E MELVI LEMUS BL MED [id number] BL 2020-02-25 10:15:00 2020-02-25 15:45:00 Emergency E OLIVER-COLIN SHULTZ BL MHBL 7500 BL 2020-02-11 00:00:00 2020-02-11 00:00:00 Refill RehanaZaira [facility] Office Building One 1.114 350.1.13.10 4.2.7.2.686 [id number] 044 [id number] [facility] 2020-02-08 00:00:00 2020-02-08 00:00:00 Refill Zaira Tom [facility] Office Building One 1.2.840.114 350.1.13.10 4.2.7.2.686 [id number] [id number] [facility] 2020-01-05 00:00:00 2020-01-05 00:00:00 Refill [facility] Building 1.2.840.114 350.1.13.10 4.2.7.2.686 [id number] [id number] [facility] 2019-11-18 00:00:00 2019-11-18 00:00:00 Telephone [facility] Building 1.2.840.114 350.1.13.10 4.2.7.2.686 [id number] [id number] [facility] 2019-11-17 00:00:00 2019-11-17 00:00:00 Telephone [facility] Building 1.2.840.114 350.1.13.10 4.2.7.2.686 [id number] [facility] 2019-10-14 00:00:00 2019-10-14 00:00:00 Refill Joaquín Caba [facility] Building 1.2.840.114 350.1.13.10 4.2.7.2.686 [id number] [facility] 2019-10-06 00:00:00 2019-10-06 00:00:00 Refill [facility] Building 1.2.840.114 350.1.13.10 4.2.7.2.686 [id number] [facility] 2019-09-30 10:15:00 2019-09-30 10:15:00 Outpatient ZAIRA LOMELI [facility] [id number] [facility] 2019-09-30 07:16:33 2019-09-30 07:31:33 Telemedici ne Visit Zaira Tom [facility] Office Building One 1.2114 350.1.13.10 4.2.7.2.686 [id number] [facility] 2019-07-27 00:00:00 2019-07-27 00:00:00 Refill Zaira Tom [facility] Office Building One 1.2.114 350.1.13.10 4.2.7.2.686 [id number] [id number] [facility] 2019-06-15 08:38:00 2019-06-14 20:22:00 Inpatient E [facility] MED [id number] [facility] 2019-03-24 00:00:00 2019-03-24 00:00:00 Telephone Zaira Tom [facility] Office Building One 1.114 350.1.13.10 4.2.7.2.686 [id number] [facility] 2019-02-28 15:22:36 2019-02-28 16:00:28 Office Visit Zaira Tom [facility] Office Building One 1.114 350.1.13.10 4.2.7.2.686 [id number] [id number] [facility] 2019-02-14 15:22:40 2019-02-14 16:14:04 Office Visit Zaira Tom [facility] Office Building One 1.2114 350.1.13.10 4.2.7.2.686 [id number] [id number] [facility] 2019-02-14 00:00:00 2019-02-14 00:00:00 Orders Only Doctor Unassigned, [place] [facility] 1.2114 350.1.13.10 4.2.7.2.686 [id number] [facility] Results Test Description Test Time Test Comments Results Result Co mments Source [facility]IP[facility] [id number] 15:00:00* Test Item Value Reference Range Interpretation [...] et al. J. of Clin. Lipidol. 2015;9:129-169. [id number] (test code = 78295-3) 63 mg/dL (calc) Reference range: <100 Desirable range <100 mg/dL for primary prevention; ?<70 mg/dL for patients with CHD or diabetic patients with > or = 2 CHD risk factors. LDL-C is now calculated using the Vitaly-Guerrero calculation, which is a validated novel method providing better accuracy than the Friedewald equation in the estimation of LDL-C. Vitaly SS et al. RAMOS. 2013;310(19): 0507-3950 (http://education.Whyteboard.com /faq/PZP909) CHOL/HDLC RATIO-Q (test code = 9830-1) 4.0 See_Comment [Automated message] The system which generated this result transmitted reference range: <5.0 (calc). The reference range was not used to interpret this result as normal/abnormal. NON-HDL CHOLESTEROL-Q (test code = 29839-9) 108 See_Comment For patients wit h diabetes plus 1 major ASCVD risk factor, treating to a non-HDL-C goal of <100 mg/dL (LDL-C of <70 mg/dL) is considered a therapeutic option. [Automated message] The system which generated this result transmitted reference range: <130 mg/dL (calc). The reference range was not used to interpret this result as normal/abnormal. GAUDENCIO (test code = GAUDENCIO) PERFORMED BY [facility]; [address] [place] [address]; MARGARET DAO MD Lab Interpretation (test code = 38519-7) Abnormal [facility]CRO[facility]UMIN, RANDOM URINE (W/CREATININE)-Q 2022-12-02 15:00:00* Test Item Value Reference Range Interpretation Comments CREATININE, RANDOM URINE-Q (test code = 2161-8) 130 mg/dL 20-320 MICROALBUMIN-Q (test code = 01690-6) 3.9 mg/dL Reference RangeN ot established MICROALBUMIN/CREATI [...] GAUDENCIO (test code = GAUDENCIO) PERFORMED BY [facility]; [address] [place] [address]; MARGARET DAO MD Lab Interpretation (test code = 01828-5) Abnormal [facility] HospitalCOMPREHENSIVE METABOLIC$PANEL W/EGFR-Q 2022-12-02 15:00:00* Test Item Value [...] mg/dL 0.70-1.30 H EGFR-Q (test code = 18112-2) 64 See_Comment The eGFR is base d [...] 4.0 mmol/L 3.5-5.3 CHLORIDE-Q (test code = 5-0) 106 mmol/L 98-110 CARBON DIOXIDE-Q (test code = 2027-9) 27 mmol/L 20-32 CALCIUM-Q (test code = 78578-2) 9.0 mg/dL 8.6-10.3 PROTEIN, TOTAL-Q (test code = 2885-2) 6.8 g/dL 6.1-8.1 ALBUMIN-Q (test code = 1751-7) 3.9 g/dL 3.6-5.1 GLOBULIN-Q (test code = 69035-1) 2.9 See_Comment [Automated message] The system which [...] as normal/abnormal. BILIRUBIN, TOTAL-Q (test code = 1975-2) 0.3 mg/dL 0.2-1.2 ALKALINE PHOSPHATASE-Q (test code = 6768-6) 54 U/L 35-144 AST-Q (test code = 1920-8) 19 U/L 10-35 ALT-Q (test code = 1742-6) 22 U/L 9-46 GAUDENCIO (test code = GAUDENCIO) PERFORMED BY [facility]; [address] [place] [address]; MARGARET DAO MD Lab Interpretation (test code = 56893-8) Abnormal [facility] (INCLUDES DIFF/PLT)-[id number] 15:00:00* Test Item Value Reference Range Interpretation [...] normal/abnormal. ABSOLUTE BAND NEUTROPHILS-Q (test code = 28574-9) SEE NOTE ABSOLUTE METAMYELOCYTES-Q (test code = 76671-5) SEE NOTE ABSOLUTE MYELOCYTES-Q (test code = 90604-0) SEE NOTE ABSOLUTE PROMYELOCYTES-Q (test code = 39140-8) SEE NOTE ABSOLUTE LYMPHOCYTES-Q (test code = [...] as normal/abnormal. ABSOLUTE BLASTS-Q (test code = 98572-7) SEE NOTE ABSOLUTE NUCLEATED RBC-Q (test code = 64204-6) SEE NOTE NEUTROPHILS-Q (test code = 770-8) 70.7 % BAND NEUTROPHILS-Q (test code = 764-1) SEE NOTE METAMYELOCYTES-Q (test code = 740-1) SEE NOTE MYELOCYTES-Q (test code = 749-2) SEE NOTE PROMYELOCYTES-Q (test code = 783-1) SEE NOTE LYMPHOCYTES-Q (test code = 736-9) 19.5 % REACTIVE LYMPHOCYTES-Q (test code = 51162-0) SEE NOTE MONOCYTES-Q (test code = 5905-5) 6.7 % EOSINOPHILS-Q (test code = 713-8) 2.5 % BASOPHILS-Q (test code = 706-2) 0.6 % BLASTS-Q (test code = 709-6) SEE NOTE NUCLEATED RBC-Q (test code = 74821-9) SEE NOTE COMMENT(S)-Q (test code = 8251-1) SEE NOTE GAUDENCIO (test code = GAUDENCIO) PERFORMED BY [facility]; [address] [place] [address]; MARGARET DAO MD Lab Interpretation (test code = 80520-1) Abnormal [facility] Hospital[facility], [id number] 15:00:00* Test Item Value Reference Range Interpretation Comments PSA, TOTAL-Q (test code = 2857-1) 7.47 ng/mL See_Comment H The total PSA va lue from this assay system is standardized against the WHO standard. The test result will be approximately 20% lower when compared to the equimolar-standardize d total PSA ([place]). Comparison of serial PSA results should be [...] GAUDENCIO (test code = GAUDENCIO) PERFORMED BY [facility]; [address] [place] [address]; MARGARET DAO MD Lab Interpretation (test code = 70639-9) Abnormal [facility] HospitalHEMOGLOBIN [id number] 15:00:00* Test Item Value Reference Range Interpretation Comments HEMOGLOBIN A1c-Q (test code = 4548-4) 6.2 See_Comment H For someone without known diabetes, a hemoglobin A1c value between 5.7% and 6.4% is consistent withprediabetes and should be confirmed with a follow-up test. For someone with known diabetes, a value <7%indicates that their diabetes is well controlled. [id number] should be individualized based on duration ofdiabetes, [...] GAUDENCIO (test code = GAUDENCIO) PERFORMED BY [facility]; [address] [place] [address]; MARGARET DAO MD Lab Interpretation (test code = 33354-5) Abnormal [facility] Notes Date/Time Note Provider Source 2024-08-11 09:45:00 Addended by: IDANIA HERNÁNDEZ on: 08/11/2024 10:01 AM Modules accepted: Orders [facility] 2024-05-06 11:34:40 Refill sent to pharmacy and notified patient [facility] 2024-05-06 11:20:48 He should be taking the metformin and the Ozempic OK to refill the Metformin if needed V [facility] 2024-05-06 11:08:15 Patient is asking if he should still be taking the Metformin with the Ozempic and if so does he need to be on the same dose of metformin ? If he needs to continue he will need a refill of metformin Please let me no so I can notify patient [facility] 2024-05-06 09:57:37 Roland Aguirre Sr. is a 54 year old male calling to see if dr made a change to his metformin. Pt says the medication was changed with out being talked to about it.They would like to discuss this Brianna Rosa [facility] 2024-04-29 11:24:51 Approved. This drug has been approved. Approved quantity: 1.5 units per 30 day(s). The drug has been approved from 04/15/2024 to 04/15/2025. Please call the pharmacy to process your prescription claim. Generic or biosimilar substitution may be required when available and preferred on the formulary.. Authorization Expiration Date: April 15, 2025. T [facility] 2024-04-29 11:16:44 Roland Aguirre Sr. is a 54 year old male Pt is requesting to speak with a nurse regarding his ozempic. Pt has been going back and forth to get this medication approved since 04.11.24. pt has been unable to cone picker medication from pharmacy. Hetal Stern [facility] 2024-04-16 11:29:43 PA was already completed and pharmacy was notified yesterday T [facility] 2024-04-16 11:21:09 Needing a PA medication request// placed in provider basket. T Arabella Diana [facility] 2024-04-15 09:52:21 PA submitted to [facility] waiting on response [facility] 2024-04-11 15:23:09 Roland Aguirre Sr. is a 54 year old male Calling in prior auth for semaglutide (OZEMPIC) 0.25 mg or 0.5 mg(2 mg/1.5 mL) PnIj Pt states he has been without Rx for over a week Please address and advise Rodney Acevedo [facility] 2024-04-01 13:38:34 Images from the original note were not included. PA Lowe: [id number] Placed in Providers box. Margi Orantes [facility] 2024-02-11 09:00:00 Images from the original note were not included. Venipuncture collection performed by clean technique on the right anticubitus. Total of 1 attempts were made. Slight pressure and a bandage/dressing were applied to the site(s). The patient experienced no complications. The following specimens were processed according to instructions and sent to [facility] laboratories per lab order on 02/11/2024 : LT BLUE SST 1 RED LAV 2 PPT DK GREEN (LiHep) DK GREEN (SodH) PIERRE DK BLUE (K2) DK BLUE (S) ACD Blood Culture NIPT/NTD [facility] 2024-01-02 11:15:57 Contacted patient to schedule an [...] elsewhere who is in network. Monica Styles [facility] 2024-01-02 10:45:19 Sent patient his sleep study on his My Chart. Called [facility], they are advising that patient will need an appointment and new prescription for new CPAP machine. Patient hasn't been seen since 2018. Manju Moncada RN [facility] 2023-12-27 11:30:55 Roland Aguirre . is a 53 year old male calling to get sleep study script copy sent to his [employer] or e-mail address for a new machine. Please advise [phone] (home) Danielle Edwards [facility]
[2024-11-15] MEDS ORDERED: HYDROCODONE/APAP 10/325 TAB ONE (22:48)
[2024-11-15 22:58] LABS: Absolute Eosinophils 0.2 K/uL (0-0.5); Absolute Lymphocytes (CBC) 1.7 K/uL (0.7-4.9); Absolute Monocytes 0.7 K/uL (0.1-1.3); Absolute Neutrophil 4.5 K/uL (1.8-8.0); Basophils % 0.6 % (0-1.3); Eosinophils % 2.6 % (0-4.4); Hematocrit 40.2 % (39.6-49.0); Hemoglobin 13.6 g/dL (13.6-17.9); MCH 30.3 pg (27.0-35.0); MCHC 33.9 g/dL (32.0-36.0); MCV 89.4 fL (80-100); MPV 8.7 fL (7.6-11.3); Monocytes % 9.8 % (3.3-12.3); Nucleated Red Blood Cells % 0.5 % (0-0); Platelets 206 thou/uL (152-406)
[2024-11-15 23:20] LABS: PT Prothrombin Time 11.6 SECONDS (10-13.0); PTT, Activated Partial Thromb 29.1 SECONDS (27.2-37.4); Protime INR 1.02
[2024-11-15 23:33] LABS: ALT/SGPT 31 U/L (16-61); AST/SGOT 15 U/L (15-37); Albumin 3.2 g/dL (3.4-5.0); Albumin/Globulin Ratio 0.8 (1.1-1.8); Alkaline Phosphatase 79 U/L (45-117); Anion Gap 9.6 mEq/L (5.0-15.0); BUN Blood Urea Nitrogen 20 mg/dL (7-18); Bicarbonate 26 mEq/L (21-32); Bilirubin Total 0.3 mg/dL (0.2-1.0); Globulin 4.2 g/dL (2.3-3.5); Glomerular Filtration Rate 57 ml/min (=/>90); Glucose Level 106 mg/dL (74-106); Magnesium 1.8 mg/dL (1.6-2.4); NT PRO-BNP 99 pg/mL (<125); Potassium 3.6 mEq/L (3.5-5.1); Protein, Total 7.4 g/dL (6.4-8.2); Sodium Level 140 mEq/L (136-145); Troponin High Sensitivity 8.7 pg/mL (<58.9)
[2024-11-15 23:34] LABS: Bilirubin Direct < 0.2 mg/dL (0-0.2); Bilirubin Indirect, Calculated 0.1 mg/dL (0.2-0.8)
[2024-11-16] MEDS ORDERED: KETOROLAC 30 MG/ML INJ ONE (00:20)
[2024-11-16] MEDS ORDERED: CEFTRIAXONE 1000 MG/VIAL ONE (00:20)
[2024-11-16] MEDS ORDERED: NA CHLORIDE 0.9% 50 ML ONE (00:20)
--- NOTE | 2024-11-16 00:42 | ER ---
Nurse's Notes [facility] Name: Hamilton Aguirre Sr Age: 54 yrs Sex: Male : 1970 Arrival Date: 11/15/2024 Time: 21:21 Bed 20 Private MD: Diagnosis: Pain in leg, unspecified;Cellulitis of right lower limb Presentation: 11/15 21:39 Chief complaint: Patient states: about a month ago i got stitched in my left knee and kd3 it is still hurting from when i fell off that ladder. About 3 days ago i bend over and now i have a big bruise to the back on my right leg. I want to make sure i don't have a blood clot. I am on Eliquis. I am a fork truck operator. I just got sent home so i could come get checked out. Coronavirus screen: Vaccine status: Patient reports receiving the 2nd dose of the covid vaccine. Ebola Screen: No symptoms or risks identified at this time. Initial Sepsis Screen: Does the patient meet any 2 criteria? No. Patient's initial sepsis screen is negative. Does the patient have a suspected source of infection? No. Patient's initial sepsis screen is negative. Risk Assessment: Do you want to hurt yourself or someone else? Patient reports no desire to harm self or others. Onset of symptoms was November 15, 2024. 21:39 Method Of Arrival: Ambulatory kd3 21:39 Acuity: BLAKE 3 kd3 21:53 Onset of symptoms was November 13, 2024. kd3 Triage Assessment: 21:59 General: Appears in no apparent distress. Behavior is calm, cooperative. Pain: kd3 Complains of pain in right leg and left knee. Historical: - Allergies: 21:39 No Known Allergies; kd3 - Home Meds: 21:59 Eliquis oral [Active]; kd3 - Immunization history:: Adult Immunizations up to date. - Infectious Disease History:: Denies. - Social history:: Smoking status: Patient denies any tobacco usage or history of. Screenin:30 [facility] ED Fall Risk Assessment (Adult) History of falling in the last 3 months, rg5 including since admission Yes- single mechanical fall (1 pt) Confusion or Disorientation No (0 pts) Intoxicated or Sedated No (0 pts) Impaired Gait Yes (1 pt) Mobility Assist Device Used Yes (1 pt) Altered Elimination No (0 pt) Score/Fall Risk Level 0 - 2 = Low Risk Oriented to surroundings, Maintained a safe environment, Hourly rounding (assess needs \T\ fall precautionary measures) done. Abuse screen: Denies threats or abuse. Nutritional screening: No deficits noted. Tuberculosis screening: No symptoms or risk factors identified. Assessment: 22:30 General: Appears in no apparent distress. comfortable, Behavior is calm, cooperative, rg5 appropriate for age. 22:30 Pain: Complains of pain in right leg and left leg Quality of pain is described as rg5 aching, Pain began 2-3 days ago. Neuro: Level of Consciousness is awake, alert, obeys commands, Oriented to person, place, time, situation. Cardiovascular: Denies chest pain. Respiratory: Airway is patent Trachea midline Respiratory effort is even, unlabored, Respiratory pattern is regular, symmetrical. GI: Abdomen is round non-distended. : No signs and/or symptoms were reported regarding the genitourinary system. EENT: No deficits noted. Derm: Skin is intact, Skin is dry, Skin is normal, Skin temperature is warm. Musculoskeletal: Circulation, motion, and sensation intact. Range of motion: intact in all extremities, Swelling present in medial aspect of right calf. 23:36 Reassessment: No changes from previously documented assessment. Patient and/or family rg5 updated on plan of care and expected duration. Pain level reassessed. Patient is alert, oriented x 3, equal unlabored respirations, skin warm/dry/pink. 11/16 00:06 Reassessment: No changes from previously documented assessment. Patient and/or family rg5 updated on plan of care and expected duration. Pain level reassessed. Patient is alert, oriented x 3, equal unlabored respirations, skin warm/dry/pink. 01:00 Reassessment: Patient and/or family updated on plan of care and expected duration. Pain rg5 level reassessed. Patient is alert, oriented x 3, equal unlabored respirations, skin warm/dry/pink. Patient states symptoms have improved. Vital Signs: 11/15 21:53 Pulse 67; Resp 18; Temp 97.6(O); Pulse Ox 98% on R/A; Weight 145.15 kg; Height 6 ft. 0 kd3 in. ; 21:53 BP 144 / 86; kd3 22:38 BP 137 / 87; Pulse 83; Resp 18; Pulse Ox 98% on R/A; Pain 8/10; rg5 11/16 00:04 BP 128 / 81; Pulse 77; Resp 18; Pulse Ox 97% on R/A; Pain 7/10; rg5 01:00 BP 125 / 79; Pulse 79; Resp 18; Pulse Ox 97% on R/A; Pain 4/10; rg5 11/15 21:53 Body Mass Index 43.40 (145.15 kg, 182.88 cm) kd3 22:38 Pain Scale: Adult rg5 11/16 00:04 Pain Scale: Adult rg5 01:00 Pain Scale: Adult rg5 ED Course: 11/15 21:23 Patient arrived in ED. mr 21:42 Triage completed. kd3 21:47 Martin Bliss PA is PHCP. cp 21:47 Martin Benavides MD is Attending Physician. cp 21:51 Sienna Shoemaker, ARCHANA is Primary Nurse. kd3 21:59 Arm band placed on right wrist. kd3 22:00 Patient has correct armband on for positive identification. rg5 22:30 No provider procedures requiring assistance completed. Inserted saline lock: 20 gauge rg5 in right wrist, using aseptic technique. Blood collected. Flushed with 10 mL NS. Patient maintains SpO2 saturation greater than 95% on room air. 22:59 XRAY Chest (1 view) In Process Unspecified. EDMS 11/16 00:11 US Extremity Venous W Compression Rodriguez In Process Unspecified. EDMS 00:11 US Lower Extremity Arterial Bilateral In Process Unspecified. EDMS 01:14 Provided Education on: post er care done. rg5 01:14 IV discontinued, bleeding controlled, No redness/swelling at site. Pressure dressing rg5 applied. Administered Medications: 11/15 22:46 Drug: HYDROcodone-acetaminophen PO 10 mg-325 mg 1 tabs PO once Route: PO; rg5 23:35 Follow up: Response: No adverse reaction; Pain is decreased rg5 11/16 00:27 Drug: Ketorolac IVP 15 mg IVP once Route: IVP; Site: right hand; rg5 00:59 Follow up: Response: No adverse reaction; Pain is decreased rg5 00:28 Drug: Rocephin IV 1 grams IV at calculated rate once; Given slow IV push per pharmacy rg5 instructions Route: IV; Rate: calculated rate; Site: right hand; 00:59 Follow up: IV Status: Completed infusion; IV Intake: 50ml rg5 Medication: 11/15 22:30 VIS not applicable for this client. rg5 Intake: 11/16 00:59 IV: 50ml; Total: 50ml. rg5 Outcome: 00:42 Discharge ordered by MD. erinn 01:14 Discharged to home ambulatory, rg5 01:14 Condition: stable 01:14 Instructed on discharge instructions, follow up and referral plans. Demonstrated understanding of instructions, Prescriptions given X 2, 01:15 Patient left the ED. rg5 Signatures: Dispatcher [employer] EDMS Ellen Trinidad, Dave Acosta mr Martin Bliss PA PA cp Doucette, Kyli, ARCHANA RN kd3 Kenroy Angela, ARCHANA RN rg5 Corrections: (The following items were deleted from the chart) 11/15 21:43 21:39 Chief complaint: Patient states: I had some palpitations and i didn't think kd3 anything of it but when i took my faja off i suddenly felt like i couldn't breath. I still feel a lot of tightness in my chest and i feel like it is hard to breathe. I had my tummy tuck done on October 29. kd3 21:49 21:39 Chief complaint: Patient states: I had some palpitations and i didn't think kd3 anything of it but when i took my faja off i suddenly felt like i couldn't breath. I still feel a lot of tightness in my chest and i feel like it is hard to breathe. I had my tummy tuck and breast augmentation done on October 29. kd3 21:58 21:39 Chief complaint: Patient states: I had some palpitations and i didn't think kd3 anything of it but when i took my faja off i suddenly felt like i couldn't breath. I still feel a lot of tightness in my chest and i feel like it is hard to breathe. I had my tummy tuck and breast augmentation done on October 29. kd3 22:00 21:38 BP 132 / 89; Pulse 116bpm; Resp 22bpm; Pulse Ox 100%; Temp 98.3F Axillary; 69.85 kd3 kg; Height 5 ft. 4 in.; BMI: 26.4; Pain 0/10, Adult; kd3 22:00 21:39 General: Appears uncomfortable, Behavior is anxious, crying, kd3 kd3 22:00 21:39 Pain: Denies pain. kd3 kd3 22:00 21:39 Arm band placed on left wrist. kd3 kd3
--- NOTE | 2024-11-16 00:42 | EDPHYS ---
Physician Documentation [facility] Name: Hamilton Aguirre Sr Age: 54 yrs Sex: Male : 1970 Arrival Date: 11/15/2024 Time: 21:21 Bed 20 Private MD: ED Physician Martin Benavides HPI: 11/15 21:50 This 54 yrs old Male presents to ER via Ambulatory with complaints of Leg Pain.cp 21:50 The patient presents with pain, that is acute, swelling. cp 21:50 The complaints affect the right leg. Onset: The symptoms/episode began/occurred 3 cp day(s) ago. Patient is a 54-year-old male who presents to the emergency department with complaints of pain to his right leg. Patient reports he bent over 3 days ago and felt a pop in his right upper leg, noticed some bruising and since has had increasing pain to his right leg and swelling. Patient also reports increased pain to his left leg since sustaining a laceration to his left knee about 1 month ago. Patient reports taking a prescribed blood thinner. Historical: - Allergies: 21:39 No Known Allergies; kd3 - Home Meds: 21:59 Eliquis oral [Active]; kd3 - Immunization history:: Adult Immunizations up to date. - Infectious Disease History:: Denies. - Social history:: Smoking status: Patient denies any tobacco usage or history of. ROS: 21:55 Constitutional: Negative for body aches, chills, fever, poor PO intake, cp 21:55 Eyes: Negative for injury, pain, redness, and discharge, cp 21:55 ENT: Negative for drainage from ear(s), ear pain, sore throat, difficulty swallowing, difficulty handling secretions, 21:55 Cardiovascular: Positive for edema, Negative for chest pain, palpitations, 21:55 Respiratory: Negative for cough, shortness of breath, wheezing, 21:55 Abdomen/GI: Negative for abdominal pain, nausea, vomiting, and diarrhea, 21:55 Back: Negative for pain at rest, pain with movement, 21:55 Neuro: Negative for altered mental status, dizziness, headache, weakness, 21:55 All other systems are negative, Exam: 22:00 Constitutional: The patient appears in no acute distress, alert, awake, non-toxic, well cp developed, well nourished, obese, uncomfortable, 22:00 Head/Face: Normocephalic, atraumatic. cp 22:00 Eyes: Periorbital structures: appear normal, Conjunctiva: normal, no exudate, no injection, Sclera: no appreciated abnormality, Lids and lashes: appear normal, bilaterally, 22:00 ENT: External ear(s): are unremarkable, Nose: is normal, Mouth: Lips: moist, Oral mucosa: moist, Posterior pharynx: Airway: no evidence of obstruction, patent, 22:00 Neck: ROM/movement: is normal, is supple, without pain, no range of motions limitations, 22:00 Chest/axilla: Inspection: normal, 22:00 Cardiovascular: Rate: normal, Rhythm: regular, 22:00 Respiratory: the patient does not display signs of respiratory distress, Respirations: normal, no use of accessory muscles, no retractions, labored breathing, is not present, Breath sounds: are clear throughout, no decreased breath sounds, no stridor, no wheezing, 22:00 Abdomen/GI: Inspection: obese 22:00 Musculoskeletal/extremity: Extremities: noted in the right leg: Moderate amount of bruising noted to the right upper leg with mild tenderness, mild erythema noted to the lower leg above the ankle with tenderness and mild swelling, no open wounds noted, noted in the left leg: Mild general swelling, 22:00 Neuro: Orientation: to person, place \T\ time. Mentation: is normal, Gait: is steady, 11/16 00:16 ECG was reviewed by the Attending Physician. cp Vital Signs: 11/15 21:53 Pulse 67; Resp 18; Temp 97.6(O); Pulse Ox 98% on R/A; Weight 145.15 kg; Height 6 ft. 0 kd3 in. ; 21:53 BP 144 / 86; kd3 22:38 BP 137 / 87; Pulse 83; Resp 18; Pulse Ox 98% on R/A; Pain 8/10; rg5 11/16 00:04 BP 128 / 81; Pulse 77; Resp 18; Pulse Ox 97% on R/A; Pain 7/10; rg5 01:00 BP 125 / 79; Pulse 79; Resp 18; Pulse Ox 97% on R/A; Pain 4/10; rg5 11/15 21:53 Body Mass Index 43.40 (145.15 kg, 182.88 cm) kd3 22:38 Pain Scale: Adult rg5 11/16 00:04 Pain Scale: Adult rg5 01:00 Pain Scale: Adult rg5 MDM: 11/15 21:47 Medical Screening Exam initiated 23:00 Differential diagnosis: dvt, cellulitis, edema. 11/16 00:41 Data reviewed: vital signs, nurses notes, lab test result(s), EKG, radiologic studies, cp ultrasound, and as a result, I will discharge patient. 00:41 I considered the following discharge prescriptions or medication management in the emergency department Medications were administered in the Emergency Department. See MAR. Independent interpretation of the following test(s) in the Emergency Department EKG: See my EKG interpretation above. Care significantly affected by the following chronic conditions: Obesity. Counseling: I had a detailed discussion with the patient and/or guardian regarding the historical points, exam findings, and any diagnostic results supporting the discharge/admit diagnosis, lab results, radiology results, the need for outpatient follow up, a family practitioner, to return to the emergency department if symptoms worsen or persist or if there are any questions or concerns that arise at home. Response to treatment: the patient's symptoms have mildly improved after treatment, and as a result, I will discharge patient. 11/15 21:41 Order name: Basic Metabolic Panel; Complete Time: 00:05 11/16 00:08 Interpretation: Normal except: CL 108; BUN 20; CRE 1.44; GFR 57; CA 8.2. 11/15 22:41 Order name: CBC with Diff; Complete Time: 00:05 11/15 21:41 Order name: LFT's; Complete Time: 00:05 11/15 21:41 Order name: Magnesium; Complete Time: 00:05 11/15 21:41 Order name: NT PRO-BNP; Complete Time: 00:05 11/15 21:41 Order name: PT-INR; Complete Time: 00:05 11/15 21:41 Order name: Troponin HS; Complete Time: 00:05 11/15 21:41 Order name: Ptt, Activated; Complete Time: 00:05 11/15 21:41 Order name: US Extremity Venous W Compression Rodriguez 11/15 21:41 Order name: XRAY Chest (1 view) 11/15 21:43 Order name: US Lower Extremity Arterial Bilateral cp 11/15 22:41 Order name: EKG; Complete Time: 22:42 cp 11/15 22:41 Order name: Cardiac monitoring; Complete Time: :43 cp 11/15 22:41 Order name: EKG - Nurse/Tech; Complete Time: 00:28 cp 11/15 22:41 Order name: IV Saline Lock; Complete Time: :43 cp 11/15 22:41 Order name: Labs collected and sent; Complete Time: : cp 11/15 22:41 Order name: O2 Per Protocol; Complete Time: :43 cp 11/15 22:41 Order name: O2 Sat Monitoring; Complete Time: :43 cp EC:16 Rate is 69 beats/min. Rhythm is regular. TN interval is normal. QRS interval is cp prolonged at 108 msec. QT interval is normal. T waves are Inverted in lead aVR. Interpreted by me. Reviewed by me. Administered Medications: 11/15 22:46 Drug: HYDROcodone-acetaminophen PO 10 mg-325 mg 1 tabs PO once Route: PO; rg5 23:35 Follow up: Response: No adverse reaction; Pain is decreased rg5 11/16 00:27 Drug: Ketorolac IVP 15 mg IVP once Route: IVP; Site: right hand; rg5 00:59 Follow up: Response: No adverse reaction; Pain is decreased rg5 00:28 Drug: Rocephin IV 1 grams IV at calculated rate once; Given slow IV push per pharmacy rg5 instructions Route: IV; Rate: calculated rate; Site: right hand; 00:59 Follow up: IV Status: Completed infusion; IV Intake: 50ml rg5 Disposition Summary: 11/16/24 00:42 Discharge Ordered Notes: Location: Home cp Problem: new cp Symptoms: have improved cp Condition: Stable cp Diagnosis - Pain in leg, unspecified cp - Cellulitis of right lower limb cp Followup: cp - With: Private Physician - When: 2 - 3 days - Reason: Recheck today's complaints Discharge Instructions: - Discharge Summary Sheet cp - Cellulitis, Adult cp - Musculoskeletal Pain cp Forms: - Medication Reconciliation Form cp - Antibiotic Education cp - Prescription Opioid Use cp - Patient Portal Instructions cp - Leadership Thank You Letter cp Prescriptions: - Anaprox DS 550 mg Oral Tablet - take 1 tablet ORAL route every 12 hours As needed; 20 tablet; Refills: 0, cp Product Selection Permitted - Cephalexin 500 mg Oral Capsule - take 1 capsule ORAL route every 6 hours for 10 days; 40 capsule; Refills: 0, cp Product Selection Permitted Signatures: Dispatcher [employer] Martin Wilson PA PA cp Doucette, Kyli, RN RN kd3 Kenroy Angela, RN RN rg5
--- NOTE | 2024-11-16 00:58 | RAD REPORT ---
EXAM DESCRIPTION: Extrem Venous W Compress Rodriguez CLINICAL HISTORY: Swelling;Pain TECHNIQUE: Real-time Duplex ultrasound of the bilateral lower extremity veins with 2-D butts scale, color Doppler flow, and spectral waveform analysis. COMPARISON: None available for comparison. FINDINGS: Deep veins: The common femoral, femoral, popliteal and visualized calf veins are patent without throm bus. Normal compressibility, augmentation response, and Doppler waveforms. Superficial veins: Visualized saphenofemoral junction is patent without thrombus. IMPRESSION: No evidence of deep venous thrombosis in the lower extremities bilaterally. Electronically signed by: Ben Murphy MD 11/16/2024 12:49 AM CDT RP Due to temporary technical issues with the PACS[employer] reporting system, reports are being sign ed by the in-house radiologist without review as a courtesy to ensure prompt reporting the interpreting rad iologist is fully responsible for the content of the report. Transcribed Date/Time: 11/16/2024 12:58 AM
--- NOTE | 2024-11-16 00:59 | RAD REPORT ---
Clinical Indication: Bed Name: 20; Pain;Swelling Comparison: None TECHNIQUE: Bilateral lower extremity arterial Doppler evaluation without pressures was performed with butts scale , color scale and Doppler waveforms evaluation. FINDINGS: RIGHT LOWER EXTREMITY: Common femoral artery: Triphasic waveform Superficial femoral artery: Mid: Triphasic waveform Popliteal artery: Triphasic waveform Posterior tibial artery: Triphasic waveform Dorsalis pedis: Triphasic waveform LEFT LOWER EXTREMITY: Common femoral artery: Triphasic waveform Superficial femoral artery: Mid: Triphasic waveform Popliteal artery: Triphasic waveform Posterior tibial artery: Triphasic waveform Dorsalis pedis: Triphasic waveform If there is further concern, recommend CTA or magnetic resonance angiography for evaluation. IMPRESSION: No sonographic evidence of high-grade stenosis in either lower extremity Electronically signed by: Matteo Rodrigues MD 11/16/2024 12:55 AM CDT RP Due to temporary technical issues with the PACS/[employer] reporting system, reports are being sign ed by the in-house radiologist without review as a courtesy to ensure prompt reporting the interpreting rad iologist is fully responsible for the content of the report. Transcribed Date/Time: 11/16/2024 12:59 AM
[2024-11-16 01:56] VITALS: TEMP 97.6
[2024-11-16 01:59] VITALS: O2SAT 97
[2024-11-16 02:01] VITALS: BP 125/79
--- NOTE | 2024-11-16 02:08 | RAD REPORT ---
EXAM DESCRIPTION: Chest Single View CLINICAL HISTORY: 54 years Male, SWELLING TECHNIQUE: 1 view (Single frontal view of the chest) COMPARISON: None. FINDINGS: LINES AND TUBES: None. CARDIOVASCULAR STRUCTURES: Normal heart size. No pulmonary venous congestion. LUNGS: No confluent areas of acute consolidation. PLEURA: No layering pleural effusions. No pneumothorax. BONES: No acute osseous abnormality of the thorax. IMPRESSION: 1. No acute cardiopulmonary disease. Electronically signed by: Carmine Vega MD 11/16/2024 12:15 AM CDT 1P Due to temporary technical issues with the PACS/[employer] reporting system, reports are being roman d by the in-house radiologist without review as a courtesy to ensure prompt reporting the interpreting radiologist is fully responsible for the content of the report. Transcribed Date/Time: 11/16/2024 2:07 AM
--- NOTE | 2024-11-17 11:59 | EKG ---
Test Date: 2024-11-16 Test Time: 00:10:53 Advice Line Rn: ANOOP MEASUREMENT RESULTS: Intervals: Rate: 69 SD: 170 QRSD: 108 QT: 380 QTc: 407 Butner: P: 37 SD: 170 QRS: -11 T: 48 INTERPRETIVE STATEMENTS: Normal sinus rhythm Normal ECG Compared to ECG 05/19/2013 22:40:42 Sinus tachycardia no longer present Electronically Signed On 11-17-24 11:56:46 CDT by Dru Lang
== END 2024-11-16 01:15 | disposition home or self-care (01) ==
LOC: ER 21:21
DX: L03.115 Cellulitis of right lower limb (principal); Z79.01 Long term (current) use of anticoagulants
CPT/HCPCS: 96365; 93005; 85025; 80048; 36415; 83735; 85610; 80076; 85730; 84484; 83880; 71045; 93925; 93970; 96375; 99284; J0696